=== PATIENT | female | born 1995 | race Caucasian/White ===

== ENCOUNTER → 2018-06-09 01:12 | Outpatient (CLI) | payer BC, SELFPAY ==
--- NOTE | 2018-06-09 10:09 | DI.REPORT_ITS ---
Many abnormalities cannot be diagnosed. A normal exam does not exclude a congenital anomaly. Radiology No. LMP: Exam Date: 06/09/18 [facility] wks days on EDC ([facility]) 07/08/18 Confirmed: HISTORY: SIZE INCONSISTENT WITH DATES, 026.843, EFT, CHICO ---- PREDICTED GESTATIONAL AGE NUMBER 35.6 weeks with a range of 34.6 week to 36.6 weeks. 1 Determined by__[id number]___LMP___HISTORY Info. pertaining to fetus # PLACENTA PRESENTATION Grade II Cephalic_X__ Anterior___Posterior__X_ Breech____ Right Left Transverse(head right___ Fundal___Low-lying___Previa___ Transverse(head left___ Varying BIOMETRY AMNIOTIC FLUID BPD: 90 mm 36.2 weeks Normal HC: 322 mm 36.2 weeks AC: 324 mm 36.2 weeks FL: 72 mm 37 weeks AMNIOTIC FLUID INDEX >26 WK CRL: mm weeks Cisterna Magna: mm CI: 89 RUQ:___4.4___LUQ___4.3 Cerebellum: cm EFW: 2957 grams 69TH Percentile RLQ:__1.8____LLQ___3.1____ Total:___13.6 cms Composite AGE= 36.3 wks EDC by US___07/04/18 BIOPHYSICAL PROFILE ANATOMY IDENTIFIED SCORE 0/2 Heart: 4-Chamber___Rate:BPM LVOT: RVOT: Amniotic Fluid(>2cms)____ Stomach: Kidneys: Respirations (>30 secs) Bladder: Post. Fossa: Body Flex/Extension 3 vessel cord: Ventricles: cord insertion: Lips:____ Extremity Flex/Extension spinal morphology: Nose: Total Score= Palate: NS=not seen A viable, cephalic harris is demonstrated. The measurements would be consistent with a gestational age of 36 weeks and 3 days. The amniotic fluid index is normal. There is a posterior grade II placenta. Please see the OB ultrasound worksheet for the complete results of this examination.
== END ==
PROVIDERS: PCP Family Medicine; Visit Provider Advanced Practice Midwife
DX: O26.843 Uterine size-date discrepancy, third trimester (principal); Z34.03 Encounter for supervision of normal first pregnancy, third trimester; Z36.85 Encounter for antenatal screening for Streptococcus B
CPT/HCPCS: 76816; 87081

== ENCOUNTER 2018-06-29 05:42 | Inpatient (IN) | payer BC, SELFPAY ==
[2018-06-29 07:06] LABS: ROM Plus Positive
[2018-06-29] MEDS: Normal Saline Flush 10 ML SYR IVP (08:50)
[2018-06-29 09:01] LABS: HCT 33.7 % (36.0-46.0); HGB 11.1 g/dL (12.0-15.5); Mean Corp. HGB Concentration 32.9 g/dL (32.0-36.0); Mean Corpuscular Hemoglobin 28.2 pg (27.0-33.0); Mean Corpuscular Volume 85.5 fL (80-95); Platelet Count 166 x1000/uL (130-400); RBC 3.94 m/cumm (4.00-5.20); RBC Distribution Width 15.3 % (11.7-14.6); White Blood Cell Count 10.19 k/cumm (4.4-10.8)
[2018-06-29] MEDS: Lactated Ringers 1,000 ML 30 ML IV (14:35)
[2018-06-29] MEDS: Lactated Ringers 500 ML 1000 ML IV (20:05)
[2018-06-29] MEDS: fentaNYL 100 MCG/2 ML VIAL EP (21:00)
[2018-06-29] MEDS: Bupivacaine 0.25% Pres-Free 10 ML VIAL EP (21:00)
[2018-06-29] MEDS: Bupivacaine 0.25% Pres-Free 30 ML VIAL (21:32)
--- NOTE | 2018-06-30 00:37 | W.PM.HP.N ---
Assessment and Plan (1) Non-reassuring electronic monitoring tracing: Current visit: Yes Status: Acute Plan to proceed to PC/S. Pt's informed consent obtained. History of Present Illness Chief Complaint: non reassuring FHR Narrative: Pt is a 22yo fmelae currently 38.5 w EGA who s/p SROM earlier this am who has been noted to have FHR category 2 for ~ 1hr. Variable decels assoc with contx. Pt s/p Oxytocin augmentation of labor after one dose of Misoprostil. Max cervical dilation 5cm. Because of Category 2 tracing remote from delivery I have recommended that the pt have a PC/S. Risks of the procedure were explained to her including risk of damage to bladder, bowel, and surrounding blood vessels. She is agrreable to the plan. Informed consent was obtained and her questions were answered. OR team has been notified. Review of Systems Constitutional Reports as per HPI Cardiovascular Reports system reviewed and no additional complaints, except as docu Respiratory Reports system reviewed and no additional complaints, except as docu Musculoskeletal Reports system reviewed and no additional complaints, except as docu Neurologic Reports other (epidudral in place. satisfactory labor analgesia.) Psychiatric Reports system reviewed and no additional complaints, except as docu PFSH Family History Father Hyperlipidemia HTN (hypertension) Mother Anxiety Other Heart disease Personal history of malignant neoplasm Medical History Vulvodynia Panic attacks Dyspareunia Anxiety Common migraine Pilonidal cyst Supervision of normal (Acute) Social History adopted: No foster care: No household members: spouse and family lives independently: Yes number of children: 0 current occupational status: employed current occupation: [employer] pets and animals: Yes (dog, 3 cats) leisure activities: exercise frequency: 5-6 times per week Smoking/Tobacco Use Status: Never alcohol intake: never details: currently none otherwise rarely substance use type: does not use special madelyn needs: No seatbelt use: always helmet use: Yes drive intox or ride w/ intox day haul or farm charter bus driver: No working smoke detector in home: Yes fire extinguisher in home: Yes carbon monox detector in home: Yes firearms in home: Yes victim of physical abuse: No victim of emotional abuse: No victim of sexual abuse: No Surgical History Excision, Pilonidal Cyst Incision & Drainage, Abscess or Hematoma Tonsillectomy and adenoidectomy Female Reproductive History Menstrual Total pregnancies: 1 Full term: 1 Meds Home Medications Medication Instructions Recorded Confirmed Type PNV cmb#95-ferrous fumarate-FA 1 ea PO DAILY 11/16/17 06/29/18 History [Prenavite] Allergies Allergy/AdvReac Type Severity Reaction Status Date / Time No Known Drug Allergies Allergy Unverified 06/29/18 15:03 Exam Const General: cooperative and healthy appearing Nutritional Appearance: overweight Orientation: alert, awake and oriented x3 Neck Neck: normal visual inspection Resp Effort & Inspection: normal respiratory effort Auscultation: clear to auscultation bilaterally Cardio Jugular venous pressure: no JVD Rate: regular rate Rhythm: regular rhythm Heart Sounds: S1 normal and S2 normal General: deferred Skin General skin exam: no rashes or lesions noted Extrem General: normal to inspection, normal exam except as noted (decreased strength in LE secondary to effects of epidural) and no clubbing, cyanosis or edema Psych Mental Status: mental status grossly normal Results Labs : 06/29/18 08:44 Laboratory Results - last 24 hr 06/29/18 06/29/18 06/29/18 06:50 08:44 08:44 WBC 10.19 RBC 3.94 L Hgb 11.1 L Hct 33.7 L MCV 85.5 MCH 28.2 MCHC 32.9 RDW 15.3 H Plt Count 166 MPV 11.0 Membranes Rupture Positive Patient ABO/Rh A Positive Antibody Screen Negative
[2018-06-30] MEDS: Sodium Citrate 30 ML CUP PO (00:52)
[2018-06-30] MEDS: AZITHROMYCIN 500 MG in Normal Saline 250 ML 250 MG IVPB (01:00)
[2018-06-30] MEDS: Ketorolac 30 MG/ML VIAL IVP ×4 (02:20→20:52)
--- NOTE | 2018-06-30 02:56 | W.PM.OP ---
Date of service: 06/30/18 Time of Service: 02:56 Operative Note DATE OF PROCEDURE: 06/30/18 PRE-OP DIAGNOSIS: Variable decelerations of heart rate remote from delivery POST-OP DIAGNOSIS: same PROCEDURE: A low transverse delivery SURGEON: Swathi Stephenson TREATING PLANT PUMPER: Dyana Garcia ANESTHESIA: spinal ESTIMATED BLOOD LOSS: 600 PATHOLOGY: none sent COMPLICATIONS: None Patient was transported to: floor Patient's condition: stable Implants: None Indications: 23-year-old female at term with repetitive variable decelerations heart rate and associated with oxytocin augmentation of labor. Maximum cervical dilatation 5 cm. Nonreassuring heart rate remote from delivery. Findings: Viable male infant named Mundo MARTINEZ with clear amniotic fluid. 6 lbs. 15 oz. Apgars 9 at 1 minute 9 at 5 minutes placenta ovaries fallopian tubes normal. Procedure Description: Patient was taken to the operating room which is placed in the sitting position and spinal anesthesia was administered without difficulty. She was then placed in the dorsal supine position with a leftward tilt. Vaginal prep with Betadine was performed and a abdominal prep with chlorhexidine was carried out and the patient was then draped in the usual sterile fashion.. Once an adequate level of anesthesia was obtained a scalpel was used to incise the skin 2 cm superior to the pubic symphysis in a transverse fashion and the underlying subcutaneous tissue was dissected to the level of the rectus fascia using a Bovie electrocautery. Scalpel was used to incise the rectus fascia in the midline and the incision was extended laterally using curved Victoria scissors. 2 gutierrez clamps were applied to the inferior aspect of the rectus fascia and the underlying rectus muscles were dissected away from the rectus fascia. A similar technique was carried out on the superior aspect of the same incision. The rectus muscles were in the midline peritoneum was entered bluntly and the peritoneal incision extended laterally using blunt technique. The bladder blade was then used to retract the bladder away from the operative field and the vesicouterine peritoneum was tented up, incised and dissected off of the uterus. The bladder blade was then reinserted to again retract the bladder away from the operative field. A scalpel was then used to incise the uterus in transverse fashion until the uterine cavity was entered and the incision was then extended using blunt technique. A single gloved hand was placed into the uterine cavity and the head was delivered through the incision with the assistance of fundal pressure. Once the infant's head and shoulders were delivered trunk followed along with the lower extremities. The cord was doubly clamped and cut and the infant was handed off to waiting pediatric team. Cord bloods were collected to be sent to the lab The placenta was delivered using gentle cord traction and uterine massage uterus was then exteriorized cleared of all clots and debris is and the uterine incision was reapproximated with a running lock suture of 0 Vicryl followed by a second imbricating suture of 0 Vicryl in a vertical mattress fashion. The incision was noted to be hemostatic. Uterus was then returned to the abdomen and the paracolic gutters cleared of all clots and debris is and the anterior abdominal wall and bladder flap were inspected and noted to be hemostatic. The abdominal peritoneum was reapproximated with a running suture of 2-0 Vicryl the rectus fascia was reapproximated with 0 Vicryl in a running fashion. Subcutaneous tissue was reapproximated with running suture of 2-0 Vicryl after the area was irrigated with normal saline. Finally the skin incision was reapproximated with subcuticular suture of 4-0 Vicryl. Skin glue was applied to the skin of the incision. Patient had SCDs on for the entire procedure. She received azithromycin IV and IV Ancef preoperatively. All sponge lap and needle counts correct ?2.
[2018-06-30 06:54] LABS: HCT 31.6 % (36.0-46.0); HGB 10.4 g/dL (12.0-15.5); Mean Corp. HGB Concentration 32.9 g/dL (32.0-36.0); Mean Corpuscular Hemoglobin 28.1 pg (27.0-33.0); Mean Corpuscular Volume 85.4 fL (80-95); Mean Platelet Volume 11.1 fL (8.0-11.0); Platelet Count 169 x1000/uL (130-400); RBC Distribution Width 15.3 % (11.7-14.6); White Blood Cell Count 16.67 k/cumm (4.4-10.8)
[2018-06-30] MEDS: Lactated Ringers 1,000 ML 120 ML IV (11:08)
[2018-06-30] MEDS: oxyCODONE 5 mg/Acetaminophen 325 mg TAB PO (17:32)
--- NOTE | 2018-06-30 19:30 | W.PM.HP.N ---
Assessment and Plan (1) Non-reassuring electronic monitoring tracing: Current visit: Yes Status: Acute Plan to proceed to PC/S. Pt's informed consent obtained. History of Present Illness Chief Complaint: non reassuring FHR Narrative: Pt is a 22yo fmelae currently 38.5 w EGA who s/p SROM earlier this am who has been noted to have FHR category 2 for ~ 1hr. Variable decels assoc with contx. Pt s/p Oxytocin augmentation of labor after one dose of Misoprostil. Max cervical dilation 5cm. Because of Category 2 tracing remote from delivery I have recommended that the pt have a PC/S. Risks of the procedure were explained to her including risk of damage to bladder, bowel, and surrounding blood vessels. She is agrreable to the plan. Informed consent was obtained and her questions were answered. OR team has been notified. History of Present Illness Chief Complaint: This note is an uncompleted duplicate of the signed preop H&P PFSH Vulvodynia Panic attacks Dyspareunia Anxiety Common migraine Pilonidal cyst Supervision of normal (Acute) Family History Father Hyperlipidemia HTN (hypertension) Mother Anxiety Other Heart disease Personal history of malignant neoplasm delivery delivered (Acute) Excision, Pilonidal Cyst Incision & Drainage, Abscess or Hematoma Tonsillectomy and adenoidectomy Family History Father Hyperlipidemia HTN (hypertension) Mother Anxiety Other Heart disease Personal history of malignant neoplasm Medical History Vulvodynia Panic attacks Dyspareunia Anxiety Common migraine Pilonidal cyst Supervision of normal (Acute) Social History adopted: No foster care: No household members: spouse, family and other details: Mundo. M. 06/30/18. lives independently: Yes number of children: 1 current occupational status: employed current occupation: [employer] pets and animals: Yes (dog, 3 cats) leisure activities: exercise frequency: 5-6 times per week Smoking/Tobacco Use Status: Never alcohol intake: never details: currently none otherwise rarely substance use type: does not use special madelyn needs: No seatbelt use: always helmet use: Yes drive intox or ride w/ intox driver merchandiser: No working smoke detector in home: Yes fire extinguisher in home: Yes carbon monox detector in home: Yes firearms in home: Yes victim of physical abuse: No victim of emotional abuse: No victim of sexual abuse: No Surgical History delivery delivered (Acute) Excision, Pilonidal Cyst Incision & Drainage, Abscess or Hematoma Tonsillectomy and adenoidectomy Social History adopted: No foster care: No household members: spouse, family and other details: willian Sebastian 06/30/18. lives independently: Yes number of children: 1 current occupational status: employed current occupation: [email or web address] pets and animals: Yes (dog, 3 cats) leisure activities: exercise frequency: 5-6 times per week Smoking/Tobacco Use Status: Never alcohol intake: never details: currently none otherwise rarely substance use type: does not use special madelyn needs: No seatbelt use: always helmet use: Yes drive intox or ride w/ intox driver merchandiser: No working smoke detector in home: Yes fire extinguisher in home: Yes carbon monox detector in home: Yes firearms in home: Yes victim of physical abuse: No victim of emotional abuse: No victim of sexual abuse: No Meds Home Medications Medication Instructions Recorded Confirmed Type norgestimate 0.25 mg-ethinyl 1 tab PO DAILY #28 tab 07/20/18 08/05/18 Rx estradiol 35 mcg tablet Allergies Allergy/AdvReac Type Severity Reaction Status Date / Time No Known Drug Allergies Allergy Unverified 07/20/18 13:27 Results Labs : 06/30/18 06:30 Laboratory Results - last 24 hr 06/30/18 06:30 WBC 16.67 H D RBC 3.70 L Hgb 10.4 L Hct 31.6 L MCV 85.4 MCH 28.1 MCHC 32.9 RDW 15.3 H Plt Count 169 MPV 11.1 H
--- NOTE | 2018-06-30 19:32 | W.PM.DS.N ---
DS: Diagnosis Discharge Diagnosis (1) Non-reassuring electronic monitoring tracing: Status: Resolved Discharge Plan Disposition Patient Disposition: HOME Condition: Good Discharge Details Reason For Visit: RULE OUT SROM Admit Date/Time: 06/29/18 05:42 Admit Provider: Aishwarya Sepulveda Attending Provider: Dyana Garcia Primary Care Provider: Matthieu Villa Hospital Course Hospital Course: Spontaneous reprimanded range confirmed she received GBS prophylaxis and went on to have cervical ripening and oxytocin augmentation of labor. Maximum cervical dilatation approximately 5 cm which time there were repetitive variable decelerations of the heart rate associated with contractions. She underwent a primary delivery for nonreassuring heart rate remote from delivery. Postop course was uncomplicated. Discharged to home . Home Meds and New Rx's Prescriptions: Discontinued aspirin [Adult Low Dose Aspirin] 81 MG tablet,delayed release (DR/EC) 81 mg PO DAILY Qty: 60 RF: 3 No Action norgestimate-ethinyl estradiol [Sprintec (28)] 0.25-35 mg-mcg tablet 1 tab PO DAILY Qty: 28 RF: 4 Discharge Instructions Additional Instructions: Watch your baby for early feeding cues, to know when your baby is hungry (mouth movements, turns toward finger if cheek gently stroked, sucking on finger or fist). Crying is a late sign of hunger. Expect that your baby will want to eat about every 1.5-3 hours (8-12 feedings per day). If your baby isn't asking to feed, wake your baby for feedings, at least every 3 hours. Once latched, some newborns need encouragement to feed actively throughout a feeding. Breast massage, combined with deep breast compressions, are usually effective in keeping babies awake, and drinking well. Signs that your baby is well include sustained bursts of sucking (10 or more strong sucks in a row, before short pauses, in a full term infant), deep and rhythmic jaw movements, frequent swallowing (once milk has come in ), and contentment between feedings. Also, once your milk is in, expect at least 6-8 wet diapers, and 4-6 seedy, loose, yellow bms (poops) everyday. Your baby should return to weight by 10-14 days old. Contact your baby's medical provider if your baby isn't reaching the above goals, or with any concerns about your baby. Also seek help for any of the following: difficulty latching/feeding your baby fussiness or sleepy behaviors at the breast painful if thinking about stopping if you haven't experienced increased breast fullness or size by 5 days after if you have any nipple breakdown/trauma any questions or concerns [facility] - Consultation [facility] - [facility] (04/05 availbility) Or Toll Free Caring for yourself after a Section Office: Center: Please limit your activity REST, REST, REST. Try not to do more than you were doing in the hospital for the first week, then gradually increase your activity. Limit stair climbing for your first week at home You may take short rides in the car anytime, but do not drive yourself until 2 weeks after your surgery. Begin by taking the car in the driveway or a parking lot. If you cannot sit in the car and turn your body comfortably, it is too soon to drive. Do not drive while taking any narcotic pain medicines. No lifting greater than 10 to 15 pounds of 6 weeks. Nothing in your vagina for 6 weeks - this means no tampons, douching or intercourse. You May Shower and wash your hair at any time. May take a bath once skin incision is healed, usually by 2 to 3 weeks. Do not scrub your incision until skin incision is healed, but it is okay for it to get wet, then pat dry. You may also clean it with peroxide if you wish. Return to work 6 weeks after your surgery or as discussed with your doctor. Expect Vaginal bleeding for 6 weeks after surgery. Some fatigue and mood changes. Baby blues are common in the first few weeks. Remember your body is using its energy to heal your surgical site and your sleep is interrupted by night time feedings. Be gentle with yourself and your partner. If the feelings of sadness continue or get worse, please call us. Call immediately if you have any thoughts of harming yourself or your baby. Drink lots of water You will need 8 to 10 glasses of water or juice every day to help prevent constipation and keep a good milk supply. Coffee, tea and soda are not good choices for keeping yourself well hydrated. For constipation, you may use over the counter products such as metamucil, Fibercon, Colace or Milk of Magnesia. Also eat a high fiber diet with lots of fruits and vegetables. Call the office For any signs of infection such as fever greater than 100.4 degrees Fahrenheit, redness or discharge from the incision or foul smelling vaginal discharge. For pain that is getting worse instead of better If you experience any new symptoms such as vomiting For bleeding that is getting heavier rather than farm equipment mechanic If you are not sure whether you need help and the office is closed, you can call the Center nurses for advice. Medications Resume any medications you were taking before delivery. You may use Ibuprofen (Advil, Motrin) 600 mg every 6 hours as needed for pain. If you buy this over the counter it is the same medicine as in a prescription. The over the counter medicine contains 200 mg, so you may take 3 tablets at a time. Instead of Ibuprofen, you may use Naproxen Sodium (Naprosyn, Aleve). You may take 500 mg every 8 to 12 hours as needed for pain. The over the counter medicine is the same as the prescription. the over the counter type contains 220 mg, so you may take 2 tablets at a time. Do not take both Ibuprofen AND Naproxen as they are very similar. Take one OR the other. You may use Acetaminophen (Tylenol) regular strength (325 mg) - take 1 or 2 tablets every 4 hours. You may use this IN ADDITION to Motrin or Naproxen because it works by a different mechanism. You have a prescription for Percocet 5/325mg take one tablet every 6 hours for pain not relieved by the Motrin. The prescription must be hand delivered by you or someone in your family to the pharmacy. Your Motrin prescription is already at the pharmacy. Follow up appointments We would like to see you one week after surgery to check your incision and remove skin mc if you have them. The Center nurses will schedule this appointment for you before you leave the hospital. We will see you again 6 weeks after your surgery for a complete exam. You may schedule that appointment by calling the office. Please call us with any other questions or concerns. Activity:: Activity as Tolerated Equipment/Supplies:: No Equipment Needed Diet:: As Tolerated Discharge Orders Discharge Orders: Discharge Order (Routine); Ordered 07/02/18 Ordered By: Tameka Moser Discharge Data Discharge Date/Time-TO BE ENTERED AT DEPARTURE: 07/02/18 12:30 DS: Summary Time spent discussing smoking cessation with patient: 3 to 10 minutes (Patient has been counseled not to smoke with the baby present) Status at Discharge Cognitive/behavioral status at discharge: Alert awake and oriented x3 Functional status at discharge: independent ambulation Overall status at discharge: patient is back to baseline Time Spent with Patient Less than 30 minutes Quality: AMI Clinical Trial Participant: No Contraindication for Aspirin: Treatment not indicated Contraindications to PCI Procedure: Treatment not indicated Contraindication for No Fibrinolytic Therapy: Treatment not indicated Quality: Stroke Reason for No Antithrombin at DC: Treatment not indicated Reason for No Anticoagulant at DC: Treatment not indicated Contraindication Not Initiating IV-Tpa: Treatment not indicated Contraindication Antithromb by Day Two: Treatment not indicated Contraindication No Statin at DC: Treatment not indicated Quality: VTE Contraindication No VTE Prophylaxis: Treatment not indicated Contraindication No Overlap Therapy: Procedure not indicated Deep Vein Thrombosis/Pulmonary Embolism Present on Admission: No Exam Narrative [facility] N[facility]ative[facility] DS: Data Vitals/I&O Vitals and I&O: Intake & Output 06/29/18 06/30/18 06/30/18 23:59 11:59 23:59 Intake Total 700 / 700 2285 / 2285 360 / 360 Output Total 700 / 700 Balance 700 / 700 1585 / 1585 360 / 360 Intake: IV 700 / 700 2285 / 2285 360 / 360 Output: Urine 100 / 100 Estimated Blood Loss 600 / 600 Other: Urine Color Yellow Urine Appearance Clear Labs on day of discharge: Labs from last 24 hours 06/30/18 06:30 WBC 16.67 H D RBC 3.70 L Hgb 10.4 L Hct 31.6 L MCV 85.4 MCH 28.1 MCHC 32.9 RDW 15.3 H Plt Count 169 MPV 11.1 H
--- NOTE | 2018-06-30 19:35 | DSE_ITS ---
DS: Diagnosis Discharge Diagnosis (1) Non-reassuring electronic monitoring tracing: Status: Resolved Discharge Plan Disposition Patient Disposition: HOME Condition: Good Discharge Details Reason For Visit: RULE OUT SROM Admit Date/Time: 06/29/18 05:42 Admit Provider: Aishwarya Sepulveda Attending Provider: Dyana Garcia Primary Care Provider: [facility] Hospital Course Hospital Course: Spontaneous reprimanded range confirmed she received GBS prophylaxis and went on to have cervical ripening and oxytocin augmentation of labor. Maximum cervical dilatation approximately 5 cm which time there were repetitive variable decelerations of the heart rate associated with contractions. She underwent a primary delivery for nonreassuring heart rate remote from delivery. Postop course was uncomplicated. Discharged to home . Home Meds and New Rx's Prescriptions: Discontinued aspirin [Adult Low Dose Aspirin] 81 MG tablet,delayed release (DR/EC) 81 mg PO DAILY Qty: 60 RF: 3 No Action norgestimate-ethinyl estradiol [Sprintec (28)] 0.25-35 mg-mcg tablet 1 tab PO DAILY Qty: 28 RF: 4 Discharge Instructions Additional Instructions: Watch your baby for early feeding cues, to know when your baby is hungry (mouth movements, turns toward finger if cheek gently stroked, sucking on finger or fist). Crying is a late sign of hunger. Expect that your baby will want to eat about every 1.5-3 hours (8-12 feedings per day). If your baby isn't asking to feed, wake your baby for feedings, at least every 3 hours. Once latched, some newborns need encouragement to feed actively throughout a feeding. Breast massage, combined with deep breast compressions, are usually effective in keeping babies awake, and drinking well. Signs that your baby is well include sustained bursts of sucking (10 or more strong sucks in a row, before short pauses, in a full term infant), deep and rhythmic jaw movements, frequent swallowing (once milk has come in ), and contentment between feedings. Also, once your milk is in, expect at least 6-8 wet diapers, and 4-6 seedy, loose, yellow bms (poops) everyday. Your baby should return to weight by 10-14 days old. Contact your baby's medical provider if your baby isn't reaching the above goals, or with any concerns about your baby. Also seek help for any of the following: * difficulty latching/feeding your baby * fussiness or sleepy behaviors at the breast * painful * if thinking about stopping * if you haven't experienced increased breast fullness or size by 5 days after * if you have any nipple breakdown/trauma * any questions or concerns [place] - Consultation [facility] - [facility] (04/05 availbility) Or Toll Free Caring for yourself after a Section Office: Center: Please limit your activity * REST, REST, REST. Try not to do more than you were doing in the hospital for the first week, then gradually increase your activity. * Limit stair climbing for your first week at home * You may take short rides in the car anytime, but do not drive yourself until 2 weeks after your surgery. Begin by taking the car in the driveway or a park ing lot. If you cannot sit in the car and turn your body comfortably, it is too soon to drive. Do not drive while taking any narcotic pain medicines. * No lifting greater than 10 to 15 pounds of 6 weeks. * Nothing in your vagina for 6 weeks - this means no tampons, douching or intercourse. You May * Shower and wash your hair at any time. May take a bath once skin incision is healed, usually by 2 to 3 weeks. * Do not scrub your incision until skin incision is healed, but it is okay for it to get wet, then pat dry. You may also clean it with peroxide if you wish. * Return to work 6 weeks after your surgery or as discussed with your doctor. Expect * Vaginal bleeding for 6 weeks after surgery. * Some fatigue and mood changes. Baby blues are common in the first few weeks. Remember your body is using its energy to heal your surgical site and your sleep is interrupted by night time feedings. Be gentle with yourself and your partner. If the feelings of sadness continue or get worse, please call us. Call immediately if you have any thoughts of harming yourself or your baby. Drink lots of water * You will need 8 to 10 glasses of water or juice every day to help prevent constipation and keep a good milk supply. Coffee, tea and soda are not good choices for keeping yourself well hydrated. * For constipation, you may use over the counter products such as metamucil, Fibercon, Colace or Milk of Magnesia. Also eat a high fiber diet with lots of fruits and vegetables. Call the office * For any signs of infection such as fever greater than 100.4 degrees Fahrenheit, redness or discharge from the incision or foul smelling vaginal discharge. * For pain that is getting worse instead of better * If you experience any new symptoms such as vomiting * For bleeding that is getting heavier rather than data integrity specialist * If you are not sure whether you need help and the office is closed, you can call the Center nurses for advice. Medications * Resume any medications you were taking before delivery. * You may use Ibuprofen (Advil, Motrin) 600 mg every 6 hours as needed for pain. If you buy this over the counter it is the same medicine as in a prescription. The over the counter medicine contains 200 mg, so you may take 3 tablets at a time. * Instead of Ibuprofen, you may use Naproxen Sodium (Naprosyn, Aleve). You may take 500 mg every 8 to 12 hours as needed for pain. The over the counter medicine is the same as the prescription. the over the counter type contains 220 mg, so you may take 2 tablets at a time. * Do not take both Ibuprofen AND Naproxen as they are very similar. Take one OR the other. * You may use Acetaminophen (Tylenol) regular strength (325 mg) - take 1 or 2 tablets every 4 hours. You may use this IN ADDITION to Motrin or Naproxen because it works by a different mechanism. * You have a prescription for Percocet 5/325mg take one tablet every 6 hours for pain not relieved by the Motrin. The prescription must be hand delivered by you or someone in your family to the pharmacy. Your Motrin prescription is already at the pharmacy. Follow up appointments * We would like to see you one week after surgery to check your incision and remove skin mc if you have them. The Center nurses will schedule this appointment for you before you leave the hospital. We will see you again 6 weeks after your surgery for a complete exam. You may schedule that appointment by calling the office. Please call us with any other questions or concerns. Activity:: Activity as Tolerated Equipment/Supplies:: No Equipment Needed Diet:: As Tolerated Discharge Orders Discharge Orders: Discharge Order (Routine); Ordered 07/02/18 Ordered By: Tameka Moser Discharge Data Discharge Date/Time-TO BE ENTERED AT DEPARTURE: 07/02/18 12:30 DS: Summary Time spent discussing smoking cessation with patient: 3 to 10 minutes (Patient has been counseled not to smoke with the baby present) Status at Discharge Cognitive/behavioral status at discharge: Alert awake and oriented x3 Functional status at discharge: independent ambulation Overall status at discharge: patient is back to baseline Time Spent with Patient Less than 30 minutes Quality: AMI Clinical Trial Participant: No Contraindication for Aspirin: Treatment not indicated Contraindications to PCI Procedure: Treatment not indicated Contraindication for No Fibrinolytic Therapy: Treatment not indicated Quality: Stroke Reason for No Antithrombin at DC: Treatment not indicated Reason for No Anticoagulant at DC: Treatment not indicated Contraindication Not Initiating IV-Tpa: Treatment not indicated Contraindication Antithromb by Day Two: Treatment not indicated Contraindication No Statin at DC: Treatment not indicated Quality: VTE Contraindication No VTE Prophylaxis: Treatment not indicated Contraindication No Overlap Therapy: Procedure not indicated Deep Vein Thrombosis/Pulmonary Embolism Present on Admission: No Exam Narrative Exam Narrative: See Centricity chart for H&P. DS: Data Vitals/I&O Vitals and I&O: Intake & Output 06/29/18 06/30/18 06/30/18 23:59 11:59 23:59 Intake Total 700 / 700 2285 / 2285 360 / 360 Output Total 700 / 700 Balance 700 / 700 1585 / 1585 360 / 360 Intake: IV 700 / 700 2285 / 2285 360 / 360 Output: Urine 100 / 100 Estimated Blood Loss 600 / 600 Other: Urine Color Yellow Urine Appearance Clear Labs on day of discharge: Labs from last 24 hours 06/30/18 06:30 WBC 16.67 H D RBC 3.70 L Hgb 10.4 L Hct 31.6 L MCV 85.4 MCH 28.1 MCHC 32.9 RDW 15.3 H Plt Count 169 MPV 11.1 H
[2018-06-30] MEDS: Normal Saline Flush 10 ML SYR IVP (22:49)
[2018-06-30] MEDS: diphenhydrAMINE 50 MG/ML VIAL 25 MG IVP (22:50)
[2018-07-01] MEDS: oxyCODONE 5 mg/Acetaminophen 325 mg TAB PO ×4 (02:50→20:23)
[2018-07-01] MEDS: Ibuprofen 600 MG TAB PO (16:10)
[2018-07-02] MEDS: oxyCODONE 5 mg/Acetaminophen 325 mg TAB PO ×3 (00:55→11:33)
[2018-07-02] MEDS: Ibuprofen 600 MG TAB PO ×2 (03:41→11:33)
--- NOTE | 2018-07-02 09:06 | W.PM.DS.N ---
DS: Diagnosis Discharge Diagnosis (1) Non-reassuring electronic monitoring tracing: Status: Acute Discharge Plan Disposition Patient Disposition: HOME Condition: Good Discharge Details Reason For Visit: RULE OUT SROM Admit Date/Time: 06/29/18 05:42 Admit Provider: Swathi Stephenson Attending Provider: Swathi Stephenson Primary Care Provider: [facility] Hospital Course: Spontaneous reprimanded range confirmed she received GBS prophylaxis and went on to have cervical ripening and oxytocin augmentation of labor. Maximum cervical dilatation approximately 5 cm which time there were repetitive variable decelerations of the heart rate associated with contractions. She underwent a primary delivery for nonreassuring heart rate remote from delivery. Postop course was uncomplicated. Discharged to home . Home Meds and New Rx's Prescriptions: New docusate sodium [Stool Softener] 50 mg capsule 50 mg PO DAILY 14 Days Qty: 14 RF: 0 oxycodone-acetaminophen 5-325 mg Tablet 1 tab PO Q4H PRN PRNQty: 10 RF: 0 ibuprofen [IBU] 600 mg Tablet 600 mg PO Q6H PRN PRNQty: 45 RF: 1 Continue PNV cmb#95-ferrous fumarate-FA [] 1 EACH tablet 1 ea PO DAILY RF: 0 Discontinued aspirin [Adult Low Dose Aspirin] 81 MG tablet,delayed release (DR/EC) 81 mg PO DAILY Qty: 60 RF: 3 No Action breast pump [Pump In Style Advanced] device .ROUTE .MEDSUPPLY Qty: 1 RF: 0 Discharge Instructions Additional Instructions: Watch your baby for early feeding cues, to know when your baby is hungry (mouth movements, turns toward finger if cheek gently stroked, sucking on finger or fist). Crying is a late sign of hunger. Expect that your baby will want to eat about every 1.5-3 hours (8-12 feedings per day). If your baby isn't asking to feed, wake your baby for feedings, at least every 3 hours. Once latched, some newborns need encouragement to feed actively throughout a feeding. Breast massage, combined with deep breast compressions, are usually effective in keeping babies awake, and drinking well. Signs that your baby is well include sustained bursts of sucking (10 or more strong sucks in a row, before short pauses, in a full term ), deep and rhythmic jaw movements, frequent swallowing (once milk has come in ), and contentment between feedings. Also, once your milk is in, expect at least 6-8 wet diapers, and 4-6 seedy, loose, yellow bms (poops) everyday. Your baby should return to weight by 10-14 days old. Contact your baby's medical provider if your baby isn't reaching the above goals, or with any concerns about your baby. Also seek help for any of the following: difficulty latching/feeding your baby fussiness or sleepy behaviors at the breast painful if thinking about stopping if you haven't experienced increased breast fullness or size by 5 days after if you have any nipple breakdown/trauma any questions or concerns [facility] - Consultation [facility] - [facility] (04/05 availbility) Or Toll Free Caring for yourself after a Section Office: Center: Please limit your activity REST, REST, REST. Try not to do more than you were doing in the hospital for the first week, then gradually increase your activity. Limit stair climbing for your first week at home You may take short rides in the car anytime, but do not drive yourself until 2 weeks after your surgery. Begin by taking the car in the driveway or a parking lot. If you cannot sit in the car and turn your body comfortably, it is too soon to drive. Do not drive while taking any narcotic pain medicines. No lifting greater than 10 to 15 pounds of 6 weeks. Nothing in your vagina for 6 weeks - this means no tampons, douching or intercourse. You May Shower and wash your hair at any time. May take a bath once skin incision is healed, usually by 2 to 3 weeks. Do not scrub your incision until skin incision is healed, but it is okay for it to get wet, then pat dry. You may also clean it with peroxide if you wish. Return to work 6 weeks after your surgery or as discussed with your doctor. Expect Vaginal bleeding for 6 weeks after surgery. Some fatigue and mood changes. Baby blues are common in the first few weeks. Remember your body is using its energy to heal your surgical site and your sleep is interrupted by night time feedings. Be gentle with yourself and your partner. If the feelings of sadness continue or get worse, please call us. Call immediately if you have any thoughts of harming yourself or your baby. Drink lots of water You will need 8 to 10 glasses of water or juice every day to help prevent constipation and keep a good milk supply. Coffee, tea and soda are not good choices for keeping yourself well hydrated. For constipation, you may use over the counter products such as metamucil, Fibercon, Colace or Milk of Magnesia. Also eat a high fiber diet with lots of fruits and vegetables. Call the office For any signs of infection such as fever greater than 100.4 degrees Fahrenheit, redness or discharge from the incision or foul smelling vaginal discharge. For pain that is getting worse instead of better If you experience any new symptoms such as vomiting For bleeding that is getting heavier rather than boil off machine operator cloth If you are not sure whether you need help and the office is closed, you can call the Center nurses for advice. Medications Resume any medications you were taking before delivery. You may use Ibuprofen (Advil, Motrin) 600 mg every 6 hours as needed for pain. If you buy this over the counter it is the same medicine as in a prescription. The over the counter medicine contains 200 mg, so you may take 3 tablets at a time. Instead of Ibuprofen, you may use Naproxen Sodium (Naprosyn, Aleve). You may take 500 mg every 8 to 12 hours as needed for pain. The over the counter medicine is the same as the prescription. the over the counter type contains 220 mg, so you may take 2 tablets at a time. Do not take both Ibuprofen AND Naproxen as they are very similar. Take one OR the other. You may use Acetaminophen (Tylenol) regular strength (325 mg) - take 1 or 2 tablets every 4 hours. You may use this IN ADDITION to Motrin or Naproxen because it works by a different mechanism. You have a prescription for Percocet 5/325mg take one tablet every 6 hours for pain not relieved by the Motrin. The prescription must be hand delivered by you or someone in your family to the pharmacy. Your Motrin prescription is already at the pharmacy. Follow up appointments We would like to see you one week after surgery to check your incision and remove skin mc if you have them. The [facility] nurses will schedule this appointment for you before you leave the hospital. We will see you again 6 weeks after your surgery for a complete exam. You may schedule that appointment by calling the office. Please call us with any other questions or concerns. Activity:: Activity as Tolerated Equipment/Supplies:: No Equipment Needed Discharge Orders Discharge Orders: Discharge Order (Routine); Ordered 07/02/18 Ordered By: Tameka Moser DS: Summary Status at Discharge Functional status at discharge: independent ambulation Quality: AMI Clinical Trial Participant: No Exam Const General: comfortable Orientation: alert and awake HENMT Head: normal to inspection Neck Neck: full ROM Resp Auscultation: clear to auscultation bilaterally Cardio Rate: regular rate Rhythm: regular rhythm GI Inspection: incision (C/D/I) Auscultation: normal bowel sounds Psych Appearance: grossly normal
--- NOTE | 2018-07-02 09:12 | DSE_ITS ---
DS: Diagnosis Discharge Diagnosis (1) Non-reassuring electronic monitoring tracing: Status: Acute Discharge Plan Disposition Patient Disposition: HOME Condition: Good Discharge Details Reason For Visit: RULE OUT SROM Admit Date/Time: 06/29/18 05:42 Admit Provider: Swathi Stephenson Attending Provider: Swathi Stephenson Primary Care Provider: [facility] Hospital Course: Spontaneous reprimanded range confirmed she received GBS prophylaxis and went on to have cervical ripening and oxytocin augmentation of labor. Maximum cervical dilatation approximately 5 cm which time there were repetitive variable decelerations of the heart rate associated with contractions. She underwent a primary delivery for nonreassuring heart rate remote from delivery. Postop course was uncomplicated. Discharged to home . Home Meds and New Rx's Prescriptions: New docusate sodium [Stool Softener] 50 mg capsule 50 mg PO DAILY 14 Days Qty: 14 RF: 0 oxycodone-acetaminophen 5-325 mg Tablet 1 tab PO Q4H PRN PRNQty: 10 RF: 0 ibuprofen [IBU] 600 mg Tablet 600 mg PO Q6H PRN PRNQty: 45 RF: 1 Continue PNV cmb#95-ferrous fumarate-FA [] 1 EACH tablet 1 ea PO DAILY RF: 0 Discontinued aspirin [Adult Low Dose Aspirin] 81 MG tablet,delayed release (DR/EC) 81 mg PO DAILY Qty: 60 RF: 3 No Action breast pump [Pump In Style Advanced] device .ROUTE .MEDSUPPLY Qty: 1 RF: 0 Discharge Instructions Additional Instructions: Watch your baby for early feeding cues, to know when your baby is hungry ( mouth movements, turns toward finger if cheek gently stroked, sucking on finger or fist). Crying is a late sign of hunger. Expect that your baby will want to eat about every 1.5-3 hours (8-12 feedings per day). If your baby isn't asking to feed, wake your baby for feedings, at least every 3 hours. Once latched, some newborns need encouragement to feed actively throughout a feeding. Breast massage, combined with deep breast compressions, are usually effective in keeping babies awake, and drinking well. Signs that your baby is well include sustained bursts of sucking (10 or more strong sucks in a row, before short pauses, in a full term ), deep and rhythmic jaw movements, frequent swallowing (once milk has come in ), and contentment between feedings. Also, once your milk is in, expect at least 6-8 wet diapers, and 4-6 seedy, loose, yellow bms (poops) everyday. Your baby should return to weight by 10-14 days old. Contact your baby's medical provider if your baby isn't reaching the above goals, or with any concerns about your baby. Also seek help for any of the following: * difficulty latching/feeding your baby * fussiness or sleepy behaviors at the breast * painful * if thinking about stopping * if you haven't experienced increased breast fullness or size by 5 days after * if you have any nipple breakdown/trauma * any questions or concerns [facility] - Consultation [facility] - [facility] (04/05 availbility) Or Toll Free Caring for yourself after a Section Office: Center: Please limit your activity * REST, REST, REST. Try not to do more than you were doing in the hospital for the first week, then gradually increase your activity. * Limit stair climbing for your first week at home * You may take short rides in the car anytime, but do not drive yourself until 2 weeks after your surgery. Begin by taking the car in the driveway or a parking lot. If you cannot sit in the car and turn your body comfortably, it is too soon to drive. Do not drive while taking any narcotic pain medicines. * No lifting greater than 10 to 15 pounds of 6 weeks. * Nothing in your vagina for 6 weeks - this means no tampons, douching or intercourse. You May * Shower and wash your hair at any time. May take a bath once skin incision is healed, usually by 2 to 3 weeks. * Do not scrub your incision until skin incision is healed, but it is okay for it to get wet, then pat dry. You may also clean it with peroxide if you wish. * Return to work 6 weeks after your surgery or as discussed with your doctor. Expect * Vaginal bleeding for 6 weeks after surgery. * Some fatigue and mood changes. Baby blues are common in the first few weeks. Remember your body is using its energy to heal your surgical site and your sleep is interrupted by night time feedings. Be gentle with yourself and your partner. If the feelings of sadness continue or get worse, please call us. Call immediately if you have any thoughts of harming yourself or your baby. Drink lots of water * You will need 8 to 10 glasses of water or juice every day to help prevent constipation and keep a good milk supply. Coffee, tea and soda are not good choices for keeping yourself well hydrated. * For constipation, you may use over the counter products such as metamucil, Fibercon, Colace or Milk of Magnesia. Also eat a high fiber diet with lots of fruits and vegetables. Call the office * For any signs of infection such as fever greater than 100.4 degrees Fahrenheit , redness or discharge from the incision or foul smelling vaginal discharge. * For pain that is getting worse instead of better * If you experience any new symptoms such as vomiting * For bleeding that is getting heavier rather than paraffin machine operator * If you are not sure whether you need help and the office is closed, you can call the Center nurses for advice. Medications * Resume any medications you were taking before delivery. * You may use Ibuprofen (Advil, Motrin) 600 mg every 6 hours as needed for pain. If you buy this over the counter it is the same medicine as in a prescription. The over the counter medicine contains 200 mg, so you may take 3 tablets at a time. * Instead of Ibuprofen, you may use Naproxen Sodium (Naprosyn, Aleve). You may take 500 mg every 8 to 12 hours as needed for pain. The over the counter medicine is the same as the prescription. the over the counter type contains 220 mg, so you may take 2 tablets at a time. * Do not take both Ibuprofen AND Naproxen as they are very similar. Take one OR the other. * You may use Acetaminophen (Tylenol) regular strength (325 mg) - take 1 or 2 tablets every 4 hours. You may use this IN ADDITION to Motrin or Naproxen because it works by a different mechanism. * You have a prescription for Percocet 5/325mg take one tablet every 6 hours for pain not relieved by the Motrin. The prescription must be hand delivered by you or someone in your family to the pharmacy. Your Motrin prescription is already at the pharmacy. Follow up appointments * We would like to see you one week after surgery to check your incision and remove skin mc if you have them. The [facility] nurses will schedule this appointment for you before you leave the hospital. We will see you again 6 weeks after your surgery for a complete exam. You may schedule that appointment by calling the office. Please call us with any other questions or concerns. Activity:: Activity as Tolerated Equipment/Supplies:: No Equipment Needed Discharge Orders Discharge Orders: Discharge Order (Routine); Ordered 07/02/18 Ordered By: Tameka Moser DS: Summary Status at Discharge Functional status at discharge: independent ambulation Quality: AMI Clinical Trial Participant: No Exam Const General: comfortable Orientation: alert and awake HENMT Head: normal to inspection Neck Neck: full ROM Resp Auscultation: clear to auscultation bilaterally Cardio Rate: regular rate Rhythm: regular rhythm GI Inspection: incision (C/D/I) Auscultation: normal bowel sounds Psych Appearance: grossly normal
[2018-07-02] MEDS: Docusate Sodium 100 MG CAP PO (11:33)
--- NOTE | 2018-09-12 11:02 | DSE_ITS ---
DS: Diagnosis Discharge Diagnosis (1) Non-reassuring electronic monitoring tracing: Status: Resolved Discharge Plan Disposition Patient Disposition: HOME Condition: Good Discharge Details Reason For Visit: RULE OUT SROM Admit Date/Time: 06/29/18 05:42 Admit Provider: Aishwarya Sepulveda Attending Provider: Dyana Garcia Primary Care Provider: Matthieu Villa Hospital Course Hospital Course: Spontaneous reprimanded range confirmed she received GBS prophylaxis and went on to have cervical ripening and oxytocin augmentation of labor. Maximum cervical dilatation approximately 5 cm which time there were repetitive variable decelerations of the heart rate associated with contractions. She underwent a primary delivery for nonreassuring heart rate remote from delivery. Postop course was uncomplicated. Discharged to home . Home Meds and New Rx's Prescriptions: Discontinued aspirin [Adult Low Dose Aspirin] 81 MG tablet,delayed release (DR/EC) 81 mg PO DAILY Qty: 60 RF: 3 No Action norgestimate-ethinyl estradiol [Sprintec (28)] 0.25-35 mg-mcg tablet 1 tab PO DAILY Qty: 28 RF: 4 Discharge Instructions Additional Instructions: Watch your baby for early feeding cues, to know when your baby is hungry ( mouth movements, turns toward finger if cheek gently stroked, sucking on finger or fist). Crying is a late sign of hunger. Expect that your baby will want to eat about every 1.5-3 hours (8-12 feedings per day). If your baby isn't asking to feed, wake your baby for feedings, at least every 3 hours. Once latched, some newborns need encouragement to feed actively throughout a feeding. Breast massage, combined with deep breast compressions, are usually effective in keeping babies awake, and drinking well. Signs that your baby is well include sustained bursts of sucking (10 or more strong sucks in a row, before short pauses, in a full term infant), deep and rhythmic jaw movements, frequent swallowing (once milk has come in ), and contentment between feedings. Also, once your milk is in, expect at least 6-8 wet diapers, and 4-6 seedy, loose, yellow bms (poops) everyday. Your baby should return to weight by 10-14 days old. Contact your baby's medical provider if your baby isn't reaching the above goals, or with any concerns about your baby. Also seek help for any of the following: * difficulty latching/feeding your baby * fussiness or sleepy behaviors at the breast * painful * if thinking about stopping * if you haven't experienced increased breast fullness or size by 5 days after * if you have any nipple breakdown/trauma * any questions or concerns [place] - Consultation [facility] - The Center (04/05 availbility) Or Toll Free Caring for yourself after a Section Office: Center: Please limit your activity * REST, REST, REST. Try not to do more than you were doing in the hospital for the first week, then gradually increase your activity. * Limit stair climbing for your first week at home * You may take short rides in the car anytime, but do not drive yourself until 2 weeks after your surgery. Begin by taking the car in the driveway or a parking lot. If you cannot sit in the car and turn your body comfortably, it is too soon to drive. Do not drive while taking any narcotic pain medicines. * No lifting greater than 10 to 15 pounds of 6 weeks. * Nothing in your vagina for 6 weeks - this means no tampons, douching or intercourse. You May * Shower and wash your hair at any time. May take a bath once skin incision is healed, usually by 2 to 3 weeks. * Do not scrub your incision until skin incision is healed, but it is okay for it to get wet, then pat dry. You may also clean it with peroxide if you wish. * Return to work 6 weeks after your surgery or as discussed with your doctor. Expect * Vaginal bleeding for 6 weeks after surgery. * Some fatigue and mood changes. Baby blues are common in the first few weeks. Remember your body is using its energy to heal your surgical site and your sleep is interrupted by night time feedings. Be gentle with yourself and your partner. If the feelings of sadness continue or get worse, please call us. Call immediately if you have any thoughts of harming yourself or your baby. Drink lots of water * You will need 8 to 10 glasses of water or juice every day to help prevent constipation and keep a good milk supply. Coffee, tea and soda are not good choices for keeping yourself well hydrated. * For constipation, you may use over the counter products such as metamucil, Fibercon, Colace or Milk of Magnesia. Also eat a high fiber diet with lots of fruits and vegetables. Call the office * For any signs of infection such as fever greater than 100.4 degrees Fahrenheit , redness or discharge from the incision or foul smelling vaginal discharge. * For pain that is getting worse instead of better * If you experience any new symptoms such as vomiting * For bleeding that is getting heavier rather than medical radiation dosimetrist * If you are not sure whether you need help and the office is closed, you can call the Center nurses for advice. Medications * Resume any medications you were taking before delivery. * You may use Ibuprofen (Advil, Motrin) 600 mg every 6 hours as needed for pain. If you buy this over the counter it is the same medicine as in a prescription. The over the counter medicine contains 200 mg, so you may take 3 tablets at a time. * Instead of Ibuprofen, you may use Naproxen Sodium (Naprosyn, Aleve). You may take 500 mg every 8 to 12 hours as needed for pain. The over the counter medicine is the same as the prescription. the over the counter type contains 220 mg, so you may take 2 tablets at a time. * Do not take both Ibuprofen AND Naproxen as they are very similar. Take one OR the other. * You may use Acetaminophen (Tylenol) regular strength (325 mg) - take 1 or 2 tablets every 4 hours. You may use this IN ADDITION to Motrin or Naproxen because it works by a different mechanism. * You have a prescription for Percocet 5/325mg take one tablet every 6 hours for pain not relieved by the Motrin. The prescription must be hand delivered by you or someone in your family to the pharmacy. Your Motrin prescription is already at the pharmacy. Follow up appointments * We would like to see you one week after surgery to check your incision and remove skin mc if you have them. The Center nurses will schedule this appointment for you before you leave the hospital. We will see you again 6 weeks after your surgery for a complete exam. You may schedule that appointment by calling the office. Please call us with any other questions or concerns. Activity:: Activity as Tolerated Equipment/Supplies:: No Equipment Needed Diet:: As Tolerated Discharge Orders Discharge Orders: Discharge Order (Routine); Ordered 07/02/18 Ordered By: Tameka Moser Discharge Data Discharge Date/Time-TO BE ENTERED AT DEPARTURE: 07/02/18 12:30 DS: Summary Quality: AMI Clinical Trial Participant: No
== END 2018-07-02 12:30 | disposition home or self-care (01) | DRG 766 ==
PROVIDERS: Obstetrics & Gynecology Gynecology; Admitting Provider Advanced Practice Midwife; PCP Family Medicine; Visit Provider Advanced Practice Midwife
PROC: 10D00Z1 Extraction of Products of Conception, Low, Open Approach (ICD-10-PCS; CPT 59514; principal; 2018-06-30 01:00)
DX: O42.02 Full-term premature rupture of membranes, onset of labor within 24 hours of rupture (principal); Z37.0 Single live birth; O76 Abnormality in fetal heart rate and rhythm complicating labor and delivery; O69.81X0 Labor and delivery complicated by cord around neck, without compression, not applicable or unspecified; Z3A.38 38 weeks gestation of pregnancy; O99.824 Streptococcus B carrier state complicating childbirth; O99.214 Obesity complicating childbirth; O99.284 Endocrine, nutritional and metabolic diseases complicating childbirth; E66.9 Obesity, unspecified; E28.2 Polycystic ovarian syndrome
CPT/HCPCS: 59514; 36415; 84112; 85027; 86850; 86900; 86901; 99218; 99238; NC; 59200; J0456; J0690; J1200; J1885; J2405; J2540; J3010; J3490

== ENCOUNTER 2021-01-31 20:21 | Outpatient (REF) | payer OTHER, SELFPAY ==
[2021-01-31 21:50] LABS: BUN 5 mg/dL (7-18); CREATININE 0.8 mg/dL (0.55-1.02); Calcium 9.2 mg/dL (8.5-10.1); Calculated LDL 86 mg/dL (<100); Chloride 104 mmol/L (98-107); Cholesterol 141 mg/dL (<200); Glucose 78 mg/dL (74-106); HDL Cholesterol 45 mg/dL (40-60); Potassium 3.9 mmol/L (3.5-5.1); Sodium 141 mmol/L (136-145); Triglyceride 52 mg/dL (<150)
[2021-01-31 21:55] LABS: HCG Quant, Pregnancy 5373 mIU/mL (1-3)
== END 2021-01-31 20:22 | disposition home or self-care (01) ==
LOC: LBN 20:21
PROVIDERS: PCP Nurse Practitioner Family; Visit Provider Nurse Practitioner Family
DX: E66.9 Obesity, unspecified (principal); Z32.01 Encounter for pregnancy test, result positive
CPT/HCPCS: 80048; 80061; 84702

== ENCOUNTER 2021-03-18 04:48 | Outpatient (CLI) | payer OTHER, SELFPAY ==
[2021-03-18 11:25] LABS: Abs Immature Grans 0.01 10^3/uL (0.0-0.06); Absolute Basophil Count 0.03 10^3/uL (0.0-0.2); Absolute Eosinophil Count 0.08 10^3/uL (0.0-0.7); Absolute Lymphocyte Count 2.21 10^3/uL (1.2-3.4); Absolute Monocyte Count 0.34 10^3/uL (0.1-0.8); Basophils % 0.4; Eosinophils % 1.2; HCT 37.1 % (36.0-46.0); HGB 12.3 g/dL (11.2-15.7); Immature Grans % 0.1; Lymphocytes % 33.1; MCH 29.1 pg (27.0-33.0); MCHC 33.2 % (32.0-36.0); MCV 87.9 fL (80-95); MPV 10.1 fL (8.0-11.0); Monocytes % 5.1; Neutrophils % 60.1; Nucleated RBC 0 %; Platelet Count 160 10^3/uL (130-400); RBC 4.22 10^6/uL (3.93-5.22); RDW 13.2 % (11.7-14.6); RDW-SD 42.1 fL; WBC 6.67 10^3/uL (4.4-10.8)
[2021-03-19 10:08] LABS: Hepatitis B Surface Ag Negative (Negative)
[2021-03-19 10:43] LABS: HIV-1/2 Ag & Ab Screen Negative (Negative)
[2021-03-19 10:52] LABS: Hepatitis C Ab w Rflx HCV PCR Negative (Negative)
[2021-03-19 11:12] LABS: Rubella IgG Ab (UVM) Positive (See Note); Varicella IgG Antibody Positive (See Note)
[2021-03-20 10:49] LABS: Syphilis Total Ab w/Reflex Nonreactive (Nonreactive)
== END 2021-03-18 04:49 | disposition home or self-care (01) ==
PROVIDERS: PCP Nurse Practitioner Family; Visit Provider Advanced Practice Midwife
DX: Z34.91 Encounter for supervision of normal pregnancy, unspecified, first trimester (principal); Z11.59 Encounter for screening for other viral diseases; Z11.4 Encounter for screening for human immunodeficiency virus [HIV]; Z01.84 Encounter for antibody response examination
CPT/HCPCS: 36415; 86787; 86803; 86850; 86900; 86901; 87340; 87389; 85025; 86762; 86780

== ENCOUNTER 2021-03-18 10:48 | Outpatient (REF) | payer OTHER, SELFPAY ==
--- NOTE | 2021-03-18 10:00 | PAPFT_PTH ---
PATIENT: Tamie Robison LOC: [facility] U#:[id number] AGE/SX: 25/F ROOM: RE03/18/[address]: Rocio Mcgarry CNM : 1995 BED: DIS: 03/18/2021 SPEC #: [id number] RECD: 03/18/21 18:03 STATUS: UBALDO REJanice #: [id number] [place]: 03/18/21 10:[address]: Rocio Mcgarry DEPT: [facility] Cytology RECD BY: Betty Aquino ENTERED: 03/18/21 18:03 SP TYPE: PAPFT OTHR DR: REGINA Augustin Tissues: 1 - CX/ENDOCX FOR PAP SMEARS Procedures: PAP THIN PREP/[facility] Screening Comments: [id number]
[2021-03-18 14:46] LABS: *AMPHETAMINES SCREEN URINE Negative (Negative); *BARBITURATES SCREEN URINE Negative (Negative); *BENZODIAZEPINES SCREEN URINE Negative (Negative); Cannabinoids THC Negative (Negative); Cocaine Screen,Urine Negative (Negative); METHADONE URINE SCREEN Negative (Negative); OPIATES URINE SCREEN Negative (Negative)
[2021-03-18 14:47] LABS: Tricyclic Antidepressants Negative (Negative)
[2021-03-19 14:01] LABS: Chlamydia Result Negative (Negative); GC Result Negative (Negative)
[2021-03-21 11:17] LABS: Buprenorphine Negative ng/mL (Cutoff: 5.0); Norbuprenorphine Negative ng/mL (Cutoff: 2.5)
== END 2021-03-18 10:49 | disposition home or self-care (01) ==
LOC: LBN 10:48
PROVIDERS: PCP Nurse Practitioner Family; Visit Provider Advanced Practice Midwife
DX: Z34.91 Encounter for supervision of normal pregnancy, unspecified, first trimester (principal); Z12.4 Encounter for screening for malignant neoplasm of cervix; Z3A.10 10 weeks gestation of pregnancy; Z11.3 Encounter for screening for infections with a predominantly sexual mode of transmission
CPT/HCPCS: 80307; 87491; 87591; 88142; 87086; 87480; 87510; 87660

== ENCOUNTER 2021-03-25 02:37 | Outpatient (CLI) | payer OTHER, SELFPAY ==
[2021-03-25 09:01] LABS: Glucose,1 Hr (Glucola) 91 mg/dL (80-140)
== END 2021-03-25 02:38 | disposition home or self-care (01) ==
LOC: LBO 02:38
PROVIDERS: PCP Nurse Practitioner Family; Visit Provider Advanced Practice Midwife
DX: Z34.91 Encounter for supervision of normal pregnancy, unspecified, first trimester (principal)
CPT/HCPCS: 36415; 82950

== ENCOUNTER 2021-05-29 16:54 | Outpatient (REF) | payer OTHER, SELFPAY | END 2021-05-29 16:55 | disposition home or self-care (01) | LOC: LBN 16:54 | PROVIDERS: PCP Nurse Practitioner Family; Visit Provider Advanced Practice Midwife | DX: Z34.92 Encounter for supervision of normal pregnancy, unspecified, second trimester (principal); Z3A.21 21 weeks gestation of pregnancy | CPT/HCPCS: 87086 ==

== ENCOUNTER 2021-07-11 04:04 | Outpatient (CLI) | payer OTHER, SELFPAY ==
[2021-07-11 11:57] LABS: HCT 35.1 % (36.0-46.0); HGB 11.7 g/dL (11.2-15.7); MCH 30.3 pg (27.0-33.0); MCHC 33.3 % (32.0-36.0); MCV 90.9 fL (80-95); MPV 10.3 fL (8.0-11.0); Platelet Count 150 10^3/uL (130-400); RBC 3.86 10^6/uL (3.93-5.22); RDW 13.8 % (11.7-14.6); RDW-SD 44.9 fL; WBC 9.73 10^3/uL (4.4-10.8)
[2021-07-11 12:04] LABS: Glucose,1 Hr (Glucola) 98 mg/dL (80-140)
== END 2021-07-11 04:05 | disposition home or self-care (01) ==
LOC: LBO 04:04
PROVIDERS: PCP Nurse Practitioner Family; Visit Provider Advanced Practice Midwife
DX: Z34.92 Encounter for supervision of normal pregnancy, unspecified, second trimester (principal)
CPT/HCPCS: 36415; 82950; 85027

== ENCOUNTER 2021-07-29 03:01 | Outpatient (CLI) | payer OTHER, SELFPAY ==
[2021-07-29 09:12] LABS: ALT 25 U/L (14-59); AST 21 U/L (15-37); Albumin 3.1 g/dL (3.4-5.0); Alkaline Phosphatase 117 U/L (46-116); Bilirubin, Total 0.2 mg/dL (0.2-1.0); Total Protein 6.6 g/dL (6.4-8.2)
[2021-07-29 09:34] LABS: Bilirubin, Direct 0.1 mg/dL (0.0-0.2)
[2021-07-30 16:39] LABS: Bile Acids, Total 3 mcmol/L (<=10)
== END 2021-07-29 03:02 | disposition home or self-care (01) ==
LOC: LBO 03:01
PROVIDERS: PCP Nurse Practitioner Family; Visit Provider Advanced Practice Midwife
DX: O99.713 Diseases of the skin and subcutaneous tissue complicating pregnancy, third trimester; L29.9 Pruritus, unspecified
CPT/HCPCS: 36415; 80076; 82239

== ENCOUNTER 2021-08-05 17:06 | Outpatient (REF) | payer OTHER, SELFPAY | END 2021-08-05 17:07 | disposition home or self-care (01) | LOC: LBN 17:06 | PROVIDERS: PCP Nurse Practitioner Family; Visit Provider Advanced Practice Midwife | DX: N89.8 Other specified noninflammatory disorders of vagina (principal) | CPT/HCPCS: 87480; 87510; 87660 ==

== ENCOUNTER 2021-09-04 13:56 | Outpatient (REF) | payer OTHER, SELFPAY | END 2021-09-04 13:57 | disposition home or self-care (01) | LOC: LBN 13:56 | PROVIDERS: PCP Nurse Practitioner Family; Visit Provider Obstetrics & Gynecology Gynecology | DX: Z34.93 Encounter for supervision of normal pregnancy, unspecified, third trimester (principal) | CPT/HCPCS: 87081 ==

== ENCOUNTER 2021-09-24 10:06 | Inpatient (IN) | payer OTHER, SELFPAY ==
[2021-09-24] VITALS (7 sets, daily range): BP systolic 115–138; BP diastolic 70–78; PULSE 69–110; RESP 14–16; TEMP 36.4–37; O2SAT 97–98; BMI 37.8
[2021-09-24 10:02] LABS: HCT 35.5 % (36.0-46.0); HGB 11.4 g/dL (11.2-15.7); MCHC 32.1 % (32.0-36.0); MCV 90.3 fL (80-95); MPV 10.1 fL (8.0-11.0); Platelet Count 142 10^3/uL (130-400); RBC 3.93 10^6/uL (3.93-5.22); RDW 13.3 % (11.7-14.6); RDW-SD 44.1 fL; WBC 9.76 10^3/uL (4.4-10.8)
[2021-09-24 10:11] LABS: Source Nasal/Nares
[2021-09-24] MEDS: Lactated Ringers 1,000 ML 200 ML IV ×2 (10:45→13:21)
[2021-09-24 10:55] LABS: COVID-19 PCR Negative (Negative)
[2021-09-24] MEDS: AZITHROMYCIN 500 MG in Normal Saline 250 ML 250 MG IVPB (11:17)
--- NOTE | 2021-09-24 11:28 | W.ANESPRE ---
General Info Date of Service Date Performed: 09/24/21 Height: 5 ft 5 in Weight: 103 kg Body Mass Index (BMI): 37.8 Surgical Procedure: Operation Date: 09/24/21 12:25 Proposed Procedures Side Surgeon p Section Repeat Heather Macias Operation Date: 09/24/21 12:40 Proposed Procedures Side Surgeon p Repeat Section Swathi Stephenson MD Meds Allergies and Home Medications Allergies Allergy/AdvReac Type Severity Reaction Status Date / Time animal dander Allergy Mild Mostly cats Verified 09/17/21 08:54 house dust Allergy Mild Wheezing, Verified 09/17/21 08:54 coughing, itchy eyes, throat itches. Home Medication Medication Instructions Recorded albuterol sulfate 90 mcg/actuation 2 inh IH Q4H PRN #18 gm 08/01/20 aerosol inhaler bupropion HCl 300 mg 24 hr tablet, 300 mg PO DAILY #90 tab 01/03/21 extended release prenat.vits,usama,mhb-qciv-sukgx 1 tab PO DAILY 02/26/21 fexofenadine 180 mg tablet 180 mg PO DAILY 06/20/21 ferrous sulfate 325 mg (65 mg 325 mg PO DAILY 07/11/21 iron) tablet diphenhydramine HCl 25 mg capsule 25 mg PO QHS PRN cap 07/25/21 Current Visit Medications: Current Medications Generic Name Dose Route Start Last Admin Trade Name Freq PRN Reason Stop Dose Admin Albuterol Sulfate 2 puff 09/24/21 10:05 Albuterol Hfa 8 Gm 60 Puff Inh IH Q4H PRN PRN shortness of breath or wheezing Bupropion HCl 300 mg 09/25/21 08:30 Bupropion-Xl 150 Mg Tabcr PO DAILY PRANEETH Citric Acid/Sodium Citrate 30 ml 09/24/21 11:00 Sodium Citrate 30 Ml Cup PO PREOP PRANEETH Device 1 each 09/24/21 11:00 Inhaler, Assist Device MC DIRECTED PRANEETH Fexofenadine HCl 180 mg 09/25/21 08:30 Fexofenadine 180 Mg Tab PO DAILY PRANEETH Ringer's Solution 1,000 mls @ 200 mls/hr 09/24/21 10:15 IV INFUSION PRANEETH Cefazolin Sodium/Dextrose 2 gm in 50 mls @ 100 mls/hr 09/24/21 10:15 Ancef Duplex IVPB PREOP PRANEETH Azithromycin 500 mg/ Sodium 250 mls @ 250 mls/hr 09/24/21 10:15 Chloride IVPB PREOP PRANEETH Sodium Chloride 500 mls @ 0 mls/hr 09/24/21 10:06 Saline 500ml Bag IV PRN PRN As Directed IV Miscellaneous Supplies 1 each 09/24/21 10:15 Iv Access IV DIRECTED PRANEETH Sodium Chloride 0 ml 09/24/21 10:06 Normal Saline Flush 10 Ml Syr IVP PRN PRN PFSH Active Problems Active Problems: Problem Status Onset Code Normal labor O80, Z37.9 Vertigo R42 Vaginal discharge N89.8 pruritus O99.719, L29.9 Sciatica of left side M54.32 History of depression, currently O99.891, Z86.59 Previous child with congenital anomaly, currently , antepartum O35.2XX0 Z34.90 Generalized anxiety disorder F41.1 Major depressive disorder F32.9 Migraine headache without aura G43.009 Medical History Medical History depression Surgical History Surgical History History of section (06/30/18) History of excision of pilonidal cyst (04/15/17) S/P tonsillectomy and adenoidectomy Tobacco Smoking/Tobacco Use Status: Never Second hand exposure: No Alcohol Alcohol Intake: never Details: currently none otherwise rarely Substance Use Substance use: Never Substance use type: does not use Prental History History 2 Para 1 Hx # Term Pregnancies 1 Multiple births 0 Hx # Pregnancies 0 Ectopic pregnancies 0 AB induced 0 Hx Number of Living Children 1 AB spontaneous 0 Past Pregnancies Del. Date GA/Weeks # Outcome Route Wgt Sex Labor Lgth Anesthesia Location Prov Complic 06/30/18 38 No Successful 3146.797 g Male [facility] hrs [facility] did the C/S Delivery Date: 06/30/18 IOL for PROM, on pitocin for 24 hrs, had epidural, distress and failure to progress at 2 cm, to C/S. 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 Aishwarya Sepulveda Vital Signs and Lab Results Lab Results Result Diagrams: 09/24/21 09:52 Blood Type / Crossmatch: Patient ABO/Rh A Positive 09/24/21 09:52 09/24/21 Antibody Screen NEGATIVE 09/24/21 09:52 09/24/21 Complete Blood Count: White Blood Count 9.76 10^3/uL (4.4-10.8) 09/24/21 09:52 09/24/21 Red Blood Count 3.93 10^6/uL (3.93-5.22) 09/24/21 09:52 09/24/21 Hemoglobin 11.4 g/dL (11.2-15.7) 09/24/21 09:52 09/24/21 Hematocrit 35.5 % (36.0-46.0) L 09/24/21 09:52 09/24/21 Platelet Count 142 10^3/uL (130-400) 09/24/21 09:52 09/24/21 Complete Metabolic Panel: No Data to Display Liver Function Panel: No Data to Display Coagulation Panel: No Data to Display Cardiac Panel: No Data to Display Arterial Blood Gas: No Data to Display Venous Blood Gas: No Data to Display Pancreas Panel: No Data to Display Thyroid Panel: No Data to Display Infectious Disease: Coronavirus (COVID-19)(PCR) Negative (Negative) 09/24/21 09:45 09/24/21 Coronavirus 2019 Source Nasal/Nares 09/24/21 09:45 09/24/21 Blood Cultures: No Data to Display Toxicology Panel: No Data to Display Panel: No Data to Display Anesthesia Assessment and Plan Anesthesia History Personal History: No History of Anesthesia Complications Family History: No Family History of Anesthesia Complications Exercise Tolerance Exercise Tolerance: Metabolic Equivalents>4 Pertinent Negatives Pertinent Negatives: No Major Cardiovascular Symptoms or Complaints and No Major Pulmonary Symptoms or Complaints Cardiac & Pulmonary Exam Cardiac Exam: Normal S1/S2 Heart Sounds Pulmonary Exam: Clear Bilateral Breath Sounds Implantable Cardiac Device Does patient have a Pacemaker or an ICD?: No Airway Exam Known Difficult Airway: No Mallampati Class: 1 Mouth Opening: Normal (> 3cm) Thyromental Distance: Greater than 3 cm Neck Range of Motion: Full ROM Neck Circumference: Normal Teeth Condition: Normal Dentition ASA Classification ASA Score: ASA 2 Emergency Case?: No NPO Status NPO Status: Full Stomach Status Status: Confirmed Anesthesia Plan Resuscitation Status: Full Code Anesthesia Technique: Spinal Anesthesia Airway Planned: Natural Airway Pain Management: Intrathecal Analgesia Monitors Used: Standard Monitors
[2021-09-24] MEDS: ceFAZolin 2 GM/50 ML BAG IVPB (12:26)
[2021-09-24] MEDS: Bupivacaine 0.25% Pres-Free 30 ML VIAL (13:13)
[2021-09-24] MEDS: Bupivacaine LIPOSOME/PF 133 MG/10 ML VIAL IJ (13:14)
--- NOTE | 2021-09-24 13:18 | PDOC.OPNB_ITS ---
Date of service: 09/24/21 Time of Service: 13:18 Operative Note Operative Note Delivery Method: Unscheduled STAT: No DATE OF PROCEDURE: 09/24/21 PRE-OP DIAGNOSES: at 38 weeks, labor, prior section, declines TOLAC POST-OP DIAGNOSES: same PROCEDURE: Repeat section SURGEON: Heather Macias Assisting Surgeon: Swathi Stephenson Anesthesia: spinal Estimated blood loss (mL): 350 Pathology: none sent Complications: None Patient was transported to: floor Patient's condition: stable Indications: Labor, 38 weeks gestation, prior section, declines trial of labor after Findings: Normal tubes, ovaries, uterus. Delivery of a viable male infant. Procedure Description: Patient was taken the operating room with an IV running where she was placed in the seated position and spinal anesthesia administered, tested, and found to be adequate. She was placed in the dorsal supine position with leftward tilt and prepped and draped in usual sterile fashion including vaginal preparation. Lambert catheter was inserted for continuous drainage of her bladder. Pneumatic compression stockings have been placed. After adequate test of her anesthesia, Pfannenstiel skin incision was made through the previous scar and carried down to the underlying fascia. The fascia was nicked in the midline and the surgical incision extended laterally. Rectus muscles identified split i n the midline and the peritoneum identified tented up and entered sharply. Peritoneal incision was then extended superiorly and inferiorly and the bladder blade was inserted. Vesicouterine peritoneum was identified and meticulously sharply dissected off of the lower uterine segment. Low transverse uterine incision was made with scalpel and extended bluntly laterally. The vertex was delivered atraumatically there is noted to be a nuchal cord x1 which was easily delivered through. Shoulders followed with ease. Three-vessel cord was noted clamped x2 and cut and the infant was then handed off to the waiting pediatric team. At this point cord blood sample was obtained. Placenta was delivered with manual expression and found to be intact. The uterus and it was then exteriorized and cleared of all clot and debris. The uterine incision was closed in a 2 layer closure of 0 Vicryl suture initial running locked suture followed by an imbricating layer. At this point the uterine incision was inspected and found to be hemostatic. Ovaries are normal bilaterally. Tubes also appear normal. Uterus was returned to the abdomen and the uterine incision again inspected and found to be hemostatic. All clot and debris was removed from the abdomen. Fascial incision was closed using 0 Vicryl suture in a running fashion. Subcutaneous tissue irrigated copious amounts of normal saline infiltration of quarter percent Marcaine and Exparel was infiltrated. Subcutaneous tissue reapproximated with 3-0 Vicryl suture in a simple interrupted fashion and the skin edge reapproximated with 4-0 undyed Monocryl in a subcuticular stitch. Steri-Strips were placed as well as sterile dressing. Patient tolerated procedure without difficulty and was taken to the center in stable condition. EBL: 350 cc Findings: Delivery of viable male . Normal tubes, ovaries, uterus Complications: None apparent Fluids: Crystalloid per anesthesia
--- NOTE | 2021-09-24 14:17 | W.ANESPOSTOP ---
Postoperative Evaluation Date, Time and Location Date Performed: 09/24/21 Time Performed: :22 Patient Location: Obstetrics Vital Signs Most Recent Imported Vital Signs: Most Recent Vital Signs Pulse BP Pulse Ox 69 115/75 97 09/24/21 13:22 09/24/21 13:09/24/21 11:46 Assessment Mental Status: Awake (Alert & Oriented to Patient Baseline) Airway and Respiratory Function: Patent airway with normal (patient baseline) respiratory exam Cardiovascular Function: Hemodynamically Stable Hydration Status: Adequately Hydrated Nausea & Vomiting: No Nausea or Vomiting Pain: Pt. Denies Any Pain Peripheral Nerve Block: Patient did not receive a nerve block
[2021-09-24] MEDS: Acetaminophen 325 MG TAB 650 MG PO (15:37)
[2021-09-24] MEDS: Ketorolac 30 MG/ML VIAL 15 MG IVP (20:12)
[2021-09-24] MEDS: Normal Saline Flush 10 ML SYR IVP (20:12)
[2021-09-25] VITALS (7 sets, daily range): BP systolic 112–127; BP diastolic 63–78; PULSE 84–91; RESP 16–18; TEMP 36.5–36.9; O2SAT 95–98
[2021-09-25] MEDS: Acetaminophen 325 MG TAB 650 MG PO ×3 (00:39→13:13)
[2021-09-25] MEDS: Ketorolac 30 MG/ML VIAL 15 MG IVP ×2 (03:37→09:44)
[2021-09-25] MEDS: Normal Saline Flush 10 ML SYR IVP ×2 (03:38→16:42)
--- NOTE | 2021-09-25 09:36 | OBPPV_ITS ---
Date of service: 09/25/21 Time of Service: 09:36 Assessment and Plan Assessment and plan (1) Status post repeat low transverse section: Status: Acute Assessment and plan: Postoperative day #1. Doing well. CBC ordered. Lambert catheter is out. Patient ambulating and breast-feeding without. Continue routine postoperative care. Subjective Subjective Patient comments: No complaints, Pain well controlled and Tolerating diet baby status: Doing well and Nursing well [place] feeding status: Exclusively breast feeding Exam Physical Exam Vital signs: Temp Pulse Resp BP Pulse Ox 98.4 F 89 16 112/73 96 09/25/21 07:45 09/25/21 07:45 09/25/21 07:45 09/25/21 07:45 09/25/21 07:45 Constitutional Constitutional: no acute distress HEENT Exam HEENT Exam: Normal Respiratory Exam Respiratory Exam: Normal Cardiovascular Exam Cardiovascular Exam: Normal Abdominal Exam Abdomen: Tender Fundal Exam Fundus: Below Umbilicus and Firm Extremities Exam Extremity Exam: Normal; negative Calf Tenderness Results Hemoglobin/Hematocrit: Hgb Cancelled 09/24/21 Unknown Hct Cancelled 09/24/21 Unknown Abnormal Lab Findings: Abnormal Labs 09/24/21 09:52 Hct 35.5 L
[2021-09-25 12:40] LABS: Abs Immature Grans 0.03 10^3/uL (0.0-0.06); Absolute Eosinophil Count 0.05 10^3/uL (0.0-0.7); Absolute Lymphocyte Count 2.99 10^3/uL (1.2-3.4); Absolute Monocyte Count 0.79 10^3/uL (0.1-0.8); Basophils % 0.2; Eosinophils % 0.4; HCT 33.5 % (36.0-46.0); HGB 10.7 g/dL (11.2-15.7); Immature Grans % 0.2; Lymphocytes % 24.6; MCH 29.6 pg (27.0-33.0); MCHC 31.9 % (32.0-36.0); MCV 92.8 fL (80-95); MPV 10.5 fL (8.0-11.0); Monocytes % 6.5; Neutrophils % 68.1; Nucleated RBC 0 %; Platelet Count 137 10^3/uL (130-400); RBC 3.61 10^6/uL (3.93-5.22); RDW 13.5 % (11.7-14.6); WBC 12.14 10^3/uL (4.4-10.8)
[2021-09-25 12:41] LABS: Absolute Basophil Count 0.02 10^3/uL (0.0-0.2); Absolute Neutrophil Count 8.27 10^3/uL (1.2-6.7)
[2021-09-25] MEDS: oxyCODONE 5 mg/Acetaminophen 325 mg TAB PO ×4 (16:46→23:42)
[2021-09-25] MEDS: Ibuprofen 600 MG TAB PO (16:46)
[2021-09-25] MEDS: buPROPion-XL 150 MG TABCR 300 MG PO (22:06)
[2021-09-26] MEDS: oxyCODONE 5 mg/Acetaminophen 325 mg TAB PO ×3 (04:03→13:20)
[2021-09-26 04:30] VITALS: BP 119/75; PULSE 79; RESP 18; TEMP 36.5; O2SAT 98
[2021-09-26] MEDS: Fexofenadine 180 MG TAB PO (09:16)
[2021-09-26] MEDS: Ibuprofen 600 MG TAB PO ×2 (09:17→15:18)
--- NOTE | 2021-09-26 10:12 | W.PM.OBPNV1 ---
Date of service: 09/26/21 Time of Service: 10:12 Assessment and Plan Assessment and plan (1) Status post repeat low transverse section: Status: Acute Assessment and plan: Postoperative day #2 status post repeat low transverse section. Doing well. Reasonable pain control. Ambulating. Pumping and feeding expressed breast milk. Anticipate discharge home today. Subjective Subjective Interval history: Patient seen and examined this morning. Doing well. Complaints of lower extremity edema. No chest pain, no shortness of breath. Pain is reasonably well controlled with oral pain medications. She is tolerating regular diet and passing flatus. circumcision performed today. She is pumping breastmilk and bottlefeeding with supplementation as needed. Patient comments: Incisional pain, Tolerating diet and Flatus present baby status: Doing well feeding status: Pumping and bottle feeding Exam Physical Exam Vital signs: Temp Pulse Resp BP Pulse Ox 97.7 F 79 18 119/75 98 09/26/21 04:30 09/26/21 04:30 09/26/21 04:30 09/26/21 04:30 09/26/21 04:30 Constitutional Constitutional: no acute distress HEENT Exam HEENT Exam: Normal Neck Exam Neck Exam: Normal Respiratory Exam Respiratory Exam: Normal Cardiovascular Exam Cardiovascular Exam: Normal Abdominal Exam Abdomen: Tender Fundal Exam Fundus: Below Umbilicus and Firm Extremities Exam Extremity Exam: Edema (2+); negative Calf Tenderness Skin Exam Skin Exam: Normal Psychiatric Exam Psychiatric Exam: Normal Results Hemoglobin/Hematocrit: Hgb 10.7 g/dL (11.2-15.7) L 09/25/21 12:15 Hct 33.5 % (36.0-46.0) L 09/25/21 12:15 Abnormal Lab Findings: Abnormal Labs 09/24/21 09/25/21 09:52 12:15 WBC 12.14 H RBC 3.61 L Hgb 10.7 L Hct 35.5 L 33.5 L MCHC 31.9 L Absolute Neutrophils 8.27 H
--- NOTE | 2021-09-26 10:19 | W.PM.OBDISCH ---
Date of service: 09/26/21 Time of Service: 10:19 DS: Diagnosis Discharge Diagnosis (1) Status post repeat low transverse section: Status: Acute Discharge Plan Disposition Patient Disposition: HOME Condition: Good Discharge Details Reason For Visit: Delivery Admit Date/Time: 09/24/21 10:06 Admit Provider: Heather Macias Attending Provider: Heather Macias [facility] Hospital Course: Patient was seen in the office on 09/24/2021 for visit having irregular, though uncomfortable contractions. She was noted to be 2 cm, 70% effaced. She was sent to the center for evaluation and was noted to be having regular contractions every 2 to 3 minutes with a reactive nonstress test. In light of the fact that she was at 38 weeks and in early labor, the decision was made to proceed with her repeat section. She underwent an uncomplicated repeat section on . She has had routine postoperative care. She will be discharged to home, ambulating, tolerating a regular diet, and oral pain medication with stable vital signs. She will be seen back in the office in 2 weeks for postoperative examination in 6 weeks for checkup. Home Meds and New Rx's Prescriptions: New oxycodone-acetaminophen [Percocet] 5-325 mg tablet 1 tab PO Q8H PRNQty: 12 RF: 0 ibuprofen 800 mg tablet 800 mg PO Q8H Qty: 60 RF: 1 docusate sodium [Colace] 100 mg capsule 100 mg PO BID Qty: 30 RF: 0 Continued bupropion HCl 300 mg tablet extended release 24 hr 300 mg PO DAILY Qty: 90 RF: 4 prenat.vits,usama,kof-ahlk-hcuty Tablet 1 tab PO DAILY RF: 0 fexofenadine 180 mg tablet 180 mg PO DAILY RF: 0 diphenhydramine HCl [Benadryl] 25 mg capsule 25 mg PO QHS PRNRF: 0 albuterol sulfate 90 mcg/actuation HFA aerosol inhaler 2 inh IH Q4H PRN (Reason: shortness of breath or wheezing) Qty: 18 RF: 1 Discontinued ferrous sulfate 325 mg (65 mg iron) tablet 325 mg PO DAILY RF: 0 Discharge Instructions Stand Alone Forms: BC Discharge Instruc Activity:: Pelvic rest, no heavy lif Equipment/Supplies:: No Equipment Needed Diet:: As Tolerated Discharge Orders Discharge Orders: Discharge Order (Routine); Ordered 09/26/21 Ordered By: Heather Macias OB:DS Summary Summary Episiotomy Description: None Laceration Description: None Laceration Extension: N/A Contraception Discussed Contraception Discussed: Yes Contraceptive Plan: Vasectomy, Infant Gender-Baby A: Male weight: 7 lb 5.286 oz Status at Discharge Functional status at discharge: independent ambulation Overall status at discharge: patient is progressing back to baseline Mental Status: mental status grossly normal Speech and Movement: speech and movement normal Mood: congruent mood Affect: normal affect Exam Physical Exam Vital signs: Temp Pulse Resp BP Pulse Ox 97.7 F 79 18 119/75 98 09/26/21 04:30 09/26/21 04:30 09/26/21 04:30 09/26/21 04:30 09/26/21 04:30 Constitutional Comments: See physical exam from progress note dated 09/26/2021 [facility] All Active Problems Status post repeat low transverse section (Acute) Normal labor (Acute) Vertigo (Acute) Vaginal discharge (Acute) pruritus (Acute) Sciatica of left side (Acute) History of depression, currently (Acute) Previous child with congenital anomaly, currently , antepartum (Acute) (Chronic) Generalized anxiety disorder (Chronic) Major depressive disorder (Chronic) Migraine headache without aura (Acute) Medical History depression Surgical History History of section (06/30/18) History of excision of pilonidal cyst (04/15/17) S/P tonsillectomy and adenoidectomy Family History Father Hyperlipidemia Hypertension Mother Anxiety Lupus (systemic lupus erythematosus) Vertigo Other Heart disease Personal history of malignant neoplasm Social History Smoking/Tobacco Use Status: Never Second Hand Exposure: No Smoking risk assessment performed?: Yes Alcohol Intake: never Details: currently none otherwise rarely Drug use: Never Substance use type: does not use Adopted: No Foster care: No Household members: spouse, family and other Details: willian Sebastian 06/30/18. Number of Children: 1 current occupation: [employer] Pets and animals: Yes (dog, 3 cats) Do you think of yourself as: straight/heterosexual Current gender identity: female What is your relationship status?: Panel score (0-1 are the most socially isolated patients): 1 What type of physical activity do you participate in: aerobic Frequency: 5-6 times per week Special madelyn needs: No Seatbelt use: always Helmet use: Yes Drive intox or ride w/intox line driver: No Working smoke detector in home: Yes Fire extinguisher in home: Yes Carbon monox detector in home: Yes Firearms in home: Yes Victim of physical abuse: No Victim of emotional abuse: No Victim of sexual abuse: No History History 2 Para 1 Hx # Term Pregnancies 1 Multiple births 0 Hx # Pregnancies 0 Ectopic pregnancies 0 AB induced 0 Hx Number of Living Children 1 AB spontaneous 0 Past Pregnancies Del. Date GA/Weeks # Outcome Route Wgt Sex Labor Lgth Anesthesia Location Prov Compl 06/30/18 38 No Successful 6 lb 15 oz Male 24 hrs [facility] did the C/S Delivery Date: 06/30/18 IOL for PROM, on pitocin for 24 hrs, had epidural, distress and failure to progress at 2 cm, to C/S. 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 Aishwarya Sepulveda DS: Data Vitals/I&O Vitals and I&O: Vital Signs Temperature 97.7 F 09/26/21 04:30 Pulse 79 09/26/21 04:30 Pulse Rhythm Regular 09/25/21 19:44 Respiratory Rate 18 09/26/21 04:30 Respiratory Depth Normal 09/24/21 16:48 Blood Pressure 119/75 09/26/21 04:30 Blood Pressure Mean 89 09/26/21 04:30 Pulse Oximetry 98 09/26/21 04:30 Oxygen Delivery Method Room Air 09/24/21 11:46 Oxygen Flow Rate 0 09/24/21 11:46 Pain Level 7 09/26/21 09:17 Intake & Output 09/25/21 09/25/21 09/26/21 11:59 23:59 11:59 Intake Total 196.988 / 196.988 Output Total 1350 / 2750 1400 / 2750 Balance -1153.012 / -2553.012 -1400 / -2553.012 Intake: IV 196.988 / 196.988 Output: Urine 1350 / 2750 1400 / 2750 Other: Urine Color Yellow Urine Appearance Clear Data Completed and Pending Labs on day of discharge: Labs from last 24 hours 09/25/21 12:15 WBC 12.14 H RBC 3.61 L Hgb 10.7 L Hct 33.5 L MCV 92.8 MCH 29.6 MCHC 31.9 L RDW 13.5 Plt Count 137 MPV 10.5 Immature Gran % 0.2 Neutrophils % 68.1 Lymphocytes % 24.6 Monocytes % 6.5 Eosinophils % 0.4 Basophils % 0.2 Nucleated RBC % 0 Absolute Neutrophils 8.27 H Absolute Lymphocytes 2.99 Absolute Monocytes 0.79 Absolute Eosinophils 0.05 Absolute Basophils 0.02
[2021-09-26 10:45] VITALS: BP 123/74; TEMP 36.7
== END 2021-09-26 15:45 | disposition home or self-care (01) | DRG 787 ==
PROVIDERS: Admitting Provider Obstetrics & Gynecology; PCP Nurse Practitioner Family; Visit Provider Obstetrics & Gynecology
PROC: 10D00Z1 Extraction of Products of Conception, Low, Open Approach (ICD-10-PCS; CPT 59514; principal; 2021-09-24 12:15)
DX: O35.2XX0 Maternal care for (suspected) hereditary disease in fetus, not applicable or unspecified (principal); O99.354 Diseases of the nervous system complicating childbirth; Z37.0 Single live birth; Z3A.38 38 weeks gestation of pregnancy; O34.211 Maternal care for low transverse scar from previous cesarean delivery; N85.8 Other specified noninflammatory disorders of uterus; O99.344 Other mental disorders complicating childbirth; G43.909 Migraine, unspecified, not intractable, without status migrainosus; F41.1 Generalized anxiety disorder; F32.9 Major depressive disorder, single episode, unspecified; O26.893 Other specified pregnancy related conditions, third trimester; L29.9 Pruritus, unspecified; M54.32 Sciatica, left side
CPT/HCPCS: 59514; 36415; 85027; 86850; 86900; 86901; 87635; 85025; J0131; J0456; J0690; J1100; J1885; J2310; J2370; J2405; J3010

== ENCOUNTER → 2022-01-22 02:02 | Outpatient (CLI) | payer OTHER, SELFPAY ==
--- NOTE | 2022-01-22 08:45 | DI.RAD_ITS ---
Exam(s) XR HIP LT COMPLETE AP PELVIS EXAM: XR HIP LT COMPLETE AP PELVIS CLINICAL HISTORY: left hip pain,m25.552. TECHNIQUE: 2D digital imaging was performed. Two views COMPARISON: No exams were available for comparison FINDINGS: BONES: No acute fracture is present. No bony destructive lesion is seen. JOINTS: No dislocation present. SOFT TISSUE: Normal. IMPRESSION: Unremarkable radiographs of the left hip. Unremarkable radiographs of the pelvis DATA REPOSITORY: RADIATION DOSE DELIVERED:
--- NOTE | 2022-01-22 15:47 | DI.RAD_ITS ---
Exam(s) XR LUMBAR SPINE COMPLETE EXAM: XR LUMBAR SPINE COMPLETE CLINICAL HISTORY: low back pain with radiculopathy,m54.32. TECHNIQUE: 2D digital imaging was performed. Five views COMPARISON: No exams were available for comparison FINDINGS: BONES: No fracture or destructive lesion. Vertebral bodies are unremarkable. No facet hypertrophy grzegorz ntified. DISKS: Intervertebral disc spaces are maintained. ALIGNMENT: Lumbar spinal alignment is within normal limits. SOFT TISSUE: Large quantity of stool. IMPRESSION: Unremarkable radiographs of the lumbar spine. DATA REPOSITORY: RADIATION DOSE DELIVERED:
== END ==
PROVIDERS: PCP Nurse Practitioner Family; Visit Provider Nurse Practitioner Family
DX: M54.32 Sciatica, left side (principal); M25.552 Pain in left hip
CPT/HCPCS: 72110; 73502

== ENCOUNTER 2022-02-14 01:42 | Outpatient (CLI) | payer OTHER, SELFPAY ==
--- NOTE | 2022-02-14 06:30 | DI.MRI_ITS ---
Exam(s) MR LUMBAR SPINE WO EXAM: MR LUMBAR SPINE WO CLINICAL HISTORY: low back pain with radiculopathy,sciatica,m54.32. TECHNIQUE: Multiplanar multisequence MRI of the Lumbar spine was performed. COMPARISON: CR XR LUMBAR SPINE COMPLETE from 01/22/2022 FINDINGS: Plain films of 01/22/2022 reviewed and reveal 5 vertebrae of lumbar configuration. Conus medullaris is at normal level. There is no evidence of conus mass nor subjacent clumping of in trathecal nerve roots to suggest arachnoiditis. The distal thecal sac appears unremarkable.There is no evidence of Tarlov intrasacral cysts nor other significant findings within the sacral canal Bones:There are no fractures nor ominous osseous lesions in the lumbar vertebral bodies and visualize d sacrum. With respect to the individual levels... T12-L1: Unremarkable L1-2: Normal disc height and signal. No disc herniation nor central canal stenosis.No foraminal steno sis L2-3: Normal disc height. No disc herniation nor central canal stenosis.No foraminal stenosis.No face t arthropathy. L3-4: Normal disc height. No disc herniation or central canal stenosis.No foraminal stenosis.No face t arthropathy. L4-5: Preserved disc height. Mild decreased disc hydration signal. There is mild symmetrical centra l annular bulging at this level. No prominent disc herniation. Central canal dimensions are within normal limits. No significant foraminal stenosis. No significant facet arthropathy. L5-S1: Normal disc height and signal. No disc herniation or central canal stenosis. No foraminal st enosis. No facet arthropathy Soft tissues: paraspinal soft tissues appear unremarkable. IMPRESSION: 1. There is symmetrical annular bulging at L4-5 level. There is, however, no large disc herniation a nd there is no central canal nor foraminal stenosis at this level nor significant facet arthropathy. 2. Other levels appear unremarkable. DATA REPOSITORY:
== END 2022-02-14 02:02 ==
LOC: DI 01:42
PROVIDERS: PCP Nurse Practitioner Family; Visit Provider Nurse Practitioner Family
DX: M54.32 Sciatica, left side (principal); M54.16 Radiculopathy, lumbar region; M51.86 Other intervertebral disc disorders, lumbar region
CPT/HCPCS: 72148

== ENCOUNTER 2023-10-08 21:50 | Outpatient (REF) | payer BC, SELFPAY ==
[2023-10-08 22:26] LABS: Bilirubin Negative (Negative); Blood Negative (Negative); Clarity Clear (Clear); Glucose Negative (Negative); Ketones Negative (Negative); Leukocyte Esterase Negative (Negative); Nitrite Negative (Negative); Urobilinogen 0.2 mg/dL (Up to 0.2); pH 7.5 (5-8)
== END 2023-10-08 21:51 | disposition home or self-care (01) ==
LOC: LBN 21:50
PROVIDERS: PCP Nurse Practitioner Family; Visit Provider Nurse Practitioner Family
DX: R35.0 Frequency of micturition (principal)
CPT/HCPCS: 81003

== ENCOUNTER 2023-10-26 05:38 | Outpatient (CLI) | payer BC, SELFPAY ==
[2023-10-26 12:36] LABS: HCT 36.7 % (36.0-46.0); HGB 11.8 g/dL (11.2-15.7); MCH 29.1 pg (27.0-33.0); MCHC 32.2 % (32.0-36.0); MCV 91 fL (80-95); MPV 10.5 fL (8.0-11.0); Platelet Count 161 10^3/uL (130-400); RBC 4.05 10^6/uL (3.93-5.22); RDW 12.7 % (11.7-14.6); RDW-SD 41.9 fL; WBC 5.69 10^3/uL (4.4-10.8)
[2023-10-26 12:50] LABS: Hemoglobin A1C 5.2 % (<5.7)
[2023-10-26 12:56] LABS: ALT 24 U/L (14-59); AST 18 U/L (15-37); Albumin 3.9 g/dL (3.4-5.0); Alkaline Phosphatase 69 U/L (46-116); Anion Gap 6.5 mmol/L (3-11); BUN 8 mg/dL (7-18); Bilirubin, Total 0.4 mg/dL (0.2-1.0); CO2 28.5 mmol/L (21.0-32.0); CREATININE 0.7 mg/dL (0.55-1.02); Calcium 8.6 mg/dL (8.5-10.1); Calculated LDL 74 mg/dL (<100); Chloride 104 mmol/L (98-107); Cholesterol 137 mg/dL (<200); Estimated GFR 119.24 (mL/min/1.73m2); Glucose 78 mg/dL (74-106); HDL Cholesterol 47 mg/dL (40-60); Potassium 3.6 mmol/L (3.5-5.1); Sodium 139 mmol/L (136-145); TSH (W/Ref FT4) 0.97 uIU/mL (0.36-3.74); Total Protein 7.4 g/dL (6.4-8.2); Triglyceride 80 mg/dL (<150)
== END 2023-10-26 05:39 | disposition home or self-care (01) ==
PROVIDERS: PCP Nurse Practitioner Family; Visit Provider Nurse Practitioner Family
DX: E66.9 Obesity, unspecified (principal); E66.01 Morbid (severe) obesity due to excess calories; D64.9 Anemia, unspecified
CPT/HCPCS: 36415; 80053; 80061; 85027; 83036; 84443

== ENCOUNTER 2023-11-25 02:54 | Outpatient (CLI) | payer BC, SELFPAY ==
[2023-11-25 12:24] LABS: Abs Immature Grans 0.02 10^3/uL (0.0-0.06); Absolute Basophil Count 0.07 10^3/uL (0.0-0.2); Absolute Eosinophil Count 2.18 10^3/uL (0.0-0.7); Absolute Lymphocyte Count 3.29 10^3/uL (1.2-3.4); Absolute Monocyte Count 0.43 10^3/uL (0.1-0.8); Absolute Neutrophil Count 4.02 10^3/uL (1.2-6.7); Basophils % 0.7; Eosinophils % 21.8; HCT 40.6 % (36.0-46.0); HGB 13.3 g/dL (11.2-15.7); Immature Grans % 0.2; Lymphocytes % 32.9; MCH 29.4 pg (27.0-33.0); MCHC 32.8 % (32.0-36.0); MCV 90 fL (80-95); MPV 10.6 fL (8.0-11.0); Monocytes % 4.3; Neutrophils % 40.1; Platelet Count 192 10^3/uL (130-400); RBC 4.52 10^6/uL (3.93-5.22); RDW 12.8 % (11.7-14.6); WBC 10.01 10^3/uL (4.4-10.8)
[2023-11-25 12:37] LABS: ALT 25 U/L (14-59); AST 19 U/L (15-37); Albumin 3.6 g/dL (3.4-5.0); Alkaline Phosphatase 88 U/L (46-116); Amylase 32 U/L (25-115); Anion Gap 10.1 mmol/L (3-11); BUN 4 mg/dL (7-18); Bilirubin, Total 0.2 mg/dL (0.2-1.0); CO2 28.9 mmol/L (21.0-32.0); CREATININE 0.7 mg/dL (0.55-1.02); Calcium 8.7 mg/dL (8.5-10.1); Chloride 104 mmol/L (98-107); Estimated GFR 119.24 (mL/min/1.73m2); Glucose 80 mg/dL (74-106); Lipase 42 U/L (16-77); Potassium 3.8 mmol/L (3.5-5.1); Sodium 143 mmol/L (136-145)
[2023-11-25 12:51] LABS: Diff Comment Diff Reviewed; RBC Morphology Normal
== END 2023-11-25 02:55 | disposition home or self-care (01) ==
LOC: LOS 02:54
PROVIDERS: PCP Nurse Practitioner Family; Visit Provider Nurse Practitioner Family
DX: R10.9 Unspecified abdominal pain (principal)
CPT/HCPCS: 36415; 80053; 83690; 82150; 85025

== ENCOUNTER → 2024-03-25 00:38 | Outpatient (CLI) | payer BC, SELFPAY ==
--- NOTE | 2024-03-25 16:15 | DI.RAD_ITS ---
Exam(s) XR FOOT RT COMPLETE EXAM: XR FOOT RT COMPLETE CLINICAL HISTORY: right great toe pain,S/P FALL,M79.674,[id number].XXXA. TECHNIQUE: 2D digital imaging was performed. COMPARISON: No exams were available for comparison FINDINGS: 3 views There is no evidence of fracture or diastasis of the Lisfranc joint. Great toe metatarsophalangeal j oint appears unremarkable as do the other articulations of the foot. There is no pes planus. No inf erior calcaneal spur. No radiopaque foreign bodies. No evidence of osteomyelitis. IMPRESSION: No significant osseous findings in the foot. DATA REPOSITORY: RADIATION DOSE DELIVERED:
== END ==
PROVIDERS: PCP Nurse Practitioner Family; Visit Provider Nurse Practitioner Family
DX: M79.674 Pain in right toe(s) (principal)
CPT/HCPCS: 73630

== ENCOUNTER 2024-04-26 18:16 | Outpatient (REF) | payer BC, SELFPAY ==
[2024-04-26 21:18] LABS: Abs Immature Grans 0.03 10^3/uL (0.0-0.06); Absolute Basophil Count 0.08 10^3/uL (0.0-0.2); Absolute Lymphocyte Count 4.11 10^3/uL (1.2-3.4); Basophils % 0.7 %; Eosinophils % 5.2 %; HCT 40.1 % (36.0-46.0); HGB 13.6 g/dL (11.2-15.7); Immature Grans % 0.3 %; Lymphocytes % 37.2 %; MCH 30.2 pg (27.0-33.0); MCHC 33.9 % (32.0-36.0); MCV 89 fL (80-95); MPV 9.8 fL (8.0-11.0); Monocytes % 6.3 %; Neutrophils % 50.3 %; Platelet Count 199 10^3/uL (130-400); RBC 4.51 10^6/uL (3.93-5.22); RDW 12.7 % (11.7-14.6); WBC 11.06 10^3/uL (4.4-10.8)
[2024-04-26 21:31] LABS: ALT 24 U/L (14-59); AST 14 U/L (15-37); Alkaline Phosphatase 69 U/L (46-116); Anion Gap 7.8 mmol/L (3-11); BUN 10 mg/dL (7-18); Bilirubin, Total 0.19 mg/dL (0.2-1.0); CO2 29.2 mmol/L (21.0-32.0); CREATININE 0.8 mg/dL (0.55-1.02); Calcium 9.1 mg/dL (8.5-10.1); Chloride 102 mmol/L (98-107); Estimated GFR 101.59 (mL/min/1.73m2); Glucose 101 mg/dL (74-106); Potassium 4.1 mmol/L (3.5-5.1); Sodium 139 mmol/L (136-145); Total Protein 7.1 g/dL (6.4-8.2)
[2024-04-26 21:32] LABS: C-Reactive Protein < 0.50 mg/dL (<or=0.5)
[2024-04-26 21:46] LABS: Absolute Eosinophil Count 0.58 10^3/uL (0.0-0.7); Absolute Neutrophil Count 5.56 10^3/uL (1.2-6.7)
== END 2024-04-26 18:17 | disposition home or self-care (01) ==
LOC: LBN 18:16
PROVIDERS: PCP Nurse Practitioner Family; Visit Provider Nurse Practitioner Family
DX: R21 Rash and other nonspecific skin eruption (principal)
CPT/HCPCS: 80053; 85025; 86140

== ENCOUNTER 2025-03-13 03:05 | Outpatient (CLI) | payer BC, SELFPAY ==
--- NOTE | 2025-03-13 07:15 | DI.RAD_ITS ---
Exam(s) XR KNEE RT 3V AP,LAT,IDRIS EXAM: XR KNEE RT 3V AP,LAT,IDRIS CLINICAL HISTORY: right knee pain,m25.561. TECHNIQUE: 2D digital imaging was performed of the right knee. Three views obtained. AP, lateral an d PA tunnel views were obtained. COMPARISON: No exams were available for comparison FINDINGS: BONES: No acute fracture is present. No bony destructive lesion is seen. JOINTS: The knee is normally aligned. No joint effusion is seen. SOFT TISSUE: Normal. IMPRESSION: Unremarkable radiographs of the right knee. DATA REPOSITORY: RADIATION DOSE DELIVERED:
== END 2025-03-13 03:25 ==
LOC: DI 03:05
PROVIDERS: PCP Nurse Practitioner Family; Visit Provider Nurse Practitioner Family
DX: M25.561 Pain in right knee (principal)
CPT/HCPCS: 73562

== ENCOUNTER → 2025-09-04 13:18 | Outpatient (CLI) | payer OTHER, SELFPAY ==
--- NOTE | 2025-09-04 13:09 | DI.RAD_ITS ---
Exam(s) XR THORACIC SPINE COMPLETE EXAM: XR THORACIC SPINE COMPLETE CLINICAL HISTORY: thoracic back pain, BACK PAIN, DORSALGIA M54.9. TECHNIQUE: 2D digital imaging was performed of the thoracic spine. Three views were obtained. AP, swimmer's and lateral views were obtained. COMPARISON: No exams were available for comparison FINDINGS: BONES: There is no fracture or destructive lesion. The vertebral bodies and posterior elements are unremarkable. DISKS:Alignment is within normal limits. Interverebral disc spaces are maintained. SOFT TISSUE: Visualized lungs are clear. IMPRESSION: Unremarkable radiographs of the thoracic spine. DATA REPOSITORY: RADIATION DOSE DELIVERED:
--- NOTE | 2025-09-04 13:25 | DI.RAD_ITS ---
Exam(s) XR LUMBAR SPINE COMP W FLEX/EX EXAM: XR LUMBAR SPINE COMP W FLEX/EX CLINICAL HISTORY: assess for disc slippage, DJD OF L SPINE, SPONDYLOSIS WO MYELOPATHY M47.816. TECHNIQUE: 2D digital imaging was performed of the lumbar spine. Seven images were obtained. AP, lateral, right oblique, left oblique, flexion, extension and L5-S1 spot views were obtained. COMPARISON: No exams were available for comparison FINDINGS: BONES: No fracture or destructive lesion. Vertebral bodies are unremarkable. No facet hypertrophy identified. DISKS: There is mild disc space narrowing at T12-L1 and L1-L2. ALIGNMENT: Lumbar spinal alignment is within normal limits. No spondylolysis or spondylolisthesis. No subluxation is seen with flexion or extension. SOFT TISSUE: Normal. IMPRESSION: 1. Minimal degenerative changes in the lumbar spine. 2. There is no subluxation with flexion or extension. DATA REPOSITORY: RADIATION DOSE DELIVERED:
== END ==
PROVIDERS: PCP Nurse Practitioner Family; Visit Provider Nurse Practitioner Family
DX: M47.816 Spondylosis without myelopathy or radiculopathy, lumbar region (principal); M54.9 Dorsalgia, unspecified
CPT/HCPCS: 72114; 72072